=== PATIENT | female | born 1950 | race Caucasian/White ===

== ENCOUNTER 2018-06-25 22:11 | Emergency (ER) | payer MEDICARE, OTHER ==
[2018-06-25] MEDS ORDERED: Sodium Chloride 0.9% 1000 ML 1,000 ML ONE (22:38)
[2018-06-25 22:40] LABS: BASOPHIL % 0.3 % (0.0-0.4); Basophil (Absolute #) 0.03 (0-0.4); Eosinophil % 2.8 % (0.00-5.0); Eosinophil (Absolute #) 0.25 (0-0.5); Granulocyte Absolute (ANC) 5.79 (1.4-6.9); Granulocytes % 65.7 % (36.0-66.0); Hematocrit 33.2 % (35-47); Hemoglobin 10.9 gm/dl (12.0-16.0); Lymphocyte (Absolute #) 1.89 (1.0-4.6); Lymphocytes % 21.4 % (24.0-44.0); Mean Cell Volume 84.7 fl (78-100); Mean Corpuscular Hemoglobin 27.8 pg (26-32); Mean Corpuscular Hgb Concent. 32.8 g/dl (32-36); Monocyte (Absolute #) 0.86 (0.0-1.3); Monocytes % 9.8 % (0.0-12.0); Platelet Count 239 K/mm3 (150-450); Red Blood Count 3.92 M/mm3 (4.1-5.4); Red Cell Distribution Width 13.6 % (11.5-14.0); White Blood Count 8.8 K/mm3 (4.0-10.5)
[2018-06-25] MEDS ORDERED: Sodium Chloride 0.9% 1000 ML 1,000 ML IV SCH (22:45)
--- NOTE | 2018-06-25 22:46 | ERPHSYRPT ---
- History of Present Illness Time Seen by Provider: 06/25/18 22:39 Source: EMS Exam Limitations: other (patient not speaking at this time) Physician History: 68-year-old white female arrives via ambulance With complaint of the patient had decreased level of consciousness at home patient was noted to have a blood sugar of 27 at home she arrives she is unable to speak she is however able to follow instructions she will mouth words. She will move all extremities. Family states that around 9:00 patient began to stumble around and then became unresponsive o'clock he started unresponsiveness medics were called around 9:30 PM. Timing/Duration: today Severity: moderate Modifying Factors: Improves With: nothing Associated Symptoms: other (decreased level of consciousness at home, not speaking, hypoglycemic at home) Allergies/Adverse Reactions: UNOBTAINABLE Allergy (Verified 06/25/18 23:22) Home Medications: Atorvastatin Calcium 80 mg PO DAILY 06/25/18 [History] Carvedilol 12.5 mg [Coreg 12.5 mg] 12.5 mg PO BID 06/25/18 [History] Gabapentin 300 mg PO TID 06/25/18 [History] Insulin Detemir [Levemir] 45 units SQ HS 06/25/18 [History] Lisinopril 40 mg PO DAILY 06/25/18 [History] Metformin HCl 1,000 mg PO BID 06/25/18 [History] Spironolactone 25 mg PO BID 06/25/18 [History] Tizanidine HCl 8 mg PO DAILY 06/25/18 [History] glipiZIDE [Glipizide] 10 mg PO DAILY 06/25/18 [History] - Review of Systems Constitutional: No Fever, No Chills Eyes: No Symptoms Ears, Nose, & Throat: No Symptoms Respiratory: No Cough, No Dyspnea Cardiac: No Chest Pain, No Edema, No Syncope Abdominal/Gastrointestinal: No Abdominal Pain, No Nausea, No Vomiting, No Diarrhea Genitourinary Symptoms: No Symptoms Musculoskeletal: No Back Pain, No Neck Pain Skin: No Rash Neurological: Other (decreased level of consciousness at home, not speaking) Psychological: No Symptoms Endocrine: No Symptoms - Past Medical History Pertinent Past Medical History: Yes Cardiac History: Hypertension Endocrine Medical History: Diabetes Type II - Nursing Vital Signs Nursing Vital Signs: Initial Vital Signs Temperature 97.4 F 06/25/18 22:25 Pulse Rate 68 06/25/18 22:25 Respiratory Rate 14 06/25/18 22:25 Blood Pressure 111/56 06/25/18 22:25 O2 Sat by Pulse Oximetry 91 L 06/25/18 22:25 Pain Scale Pain Intensity 0 - Physical Exam General Appearance: other (well-developed well-nour alert she is holding onto bilateral bed rails, she is cooperative to examination, patient will mouth words however she will not answer verbally to questions) Eye Exam: PERRL/EOMI, eyes nml inspection Ears, Nose, Throat Exam: normal ENT inspection, TMs normal, pharynx normal, moist mucous membranes Neck Exam: normal inspection, non-tender, supple, full range of motion Respiratory Exam: normal breath sounds, lungs clear, No respiratory distress Cardiovascular Exam: regular rate/rhythm, normal heart sounds, normal peripheral pulses Gastrointestinal/Abdomen Exam: soft, normal bowel sounds, No tenderness, No mass Back Exam: normal inspection, normal range of motion, No CVA tenderness, No vertebral tenderness Extremity Exam: normal inspection, normal range of motion, pelvis stable Neurologic Exam: alert, cooperative, lime mixer II-XII nml as tested (this is or she had W), normal mood/affect, nml cerebellar function, nml station & gait, sensation nml, other (patient will mouth words when going to answer questions. However she will not speak out loud, no facial droop, cranial nerves II through XII intact, tumbler machine operator helper equal and symmetrical 5 over 5, normal finger to nose, full range of motion to all extremities. Sensation intact to all extremities. Follows commands well), No motor deficits Skin Exam: normal color, warm, dry, No rash SpO2 Interpretation: normal - Course Nursing assessment & vital signs reviewed: Yes EKG Interpreted by Me: RATE (67 bpm), Sinus Rhythm, NORMAL AXIS, Other (EKG: Sinus rhythm, 67 bpm normal axis, no acute ST or T wave changes noted.) - CT Exams Head CT Interpretation: Tele-radiologist Report (no acute findings) Ordered Tests: Active Orders 24 hr Category Date Time Status Accucheck STAT Care 06/25/18 22:32 Active Accucheck STAT Care 06/26/18 00:00 Active Accucheck STAT Care 06/26/18 01:04 Active Accucheck STAT Care 06/26/18 02:00 Active Sound Assistant STAT Care 06/25/18 22:33 Active EKG-ER Only STAT Care 06/25/18 22:32 Active IV Insertion STAT Care 06/25/18 22:32 Active HEAD WITHOUT CONTRAST [CT] Stat Exams 06/25/18 22:33 Taken CBC W DIFF Stat Lab 06/25/18 22:30 Completed CMP Stat Lab 06/25/18 22:30 Completed PROTIME WITH INR Stat Lab 06/25/18 22:40 Completed PTT Stat Lab 06/25/18 22:40 Completed TROPONIN Q3H Lab 06/25/18 22:40 Completed TROPONIN Q3H Lab 06/26/18 01:45 Ordered TROPONIN Q3H Lab 06/26/18 04:45 Ordered TROPONIN Q3H Lab 06/26/18 07:45 Ordered TROPONIN Q3H Lab 06/26/18 10:45 Ordered UA W/RFX UR CULTURE Stat Lab 06/25/18 23:38 Ordered Medication Summary Generic Name Dose Route Start Last Admin Trade Name Freq PRN Reason Stop Dose Admin Sodium Chloride 1,000 mls @ 50 mls/hr 06/25/18 22:45 06/25/18 22:39 Sodium Chloride 0.9% 1000 Ml IV 07/25/18 22:44 50 mls/hr .Q20H SRI Administration Dextrose/Sodium Chloride 1,000 mls @ 100 mls/hr 06/26/18 00:30 06/26/18 00:09 Dextrose 5%-Ns Iv Solution 1000 Ml IV 07/26/18 00:29 100 mls/hr .Q10H SRI Administration Lab/Rad Data: Laboratory Result Diagrams 06/25/18 22:30 06/25/18 22:30 Laboratory Results 06/25/18 06/25/18 06/25/18 Range/Units 22:40 22:40 22:30 WBC (4.0-10.5) K/mm3 RBC (4.1-5.4) M/mm3 Hgb (12.0-16.0) gm/dl Hct (35-47) % MCV (78-100) fl MCH (26-32) pg MCHC (32-36) g/dl RDW (11.5-14.0) % Plt Count (150-450) K/mm3 MPV (6-9.5) fl Gran % (36.0-66.0) % Eos # (Auto) (0-0.5) Absolute Lymphs (auto) (1.0-4.6) Absolute Monos (auto) (0.0-1.3) Lymphocytes % (24.0-44.0) % Monocytes % (0.0-12.0) % Eosinophils % (0.00-5.0) % Basophils % (0.0-0.4) % Absolute Granulocytes (1.4-6.9) Basophils # (0-0.4) PT 11.7 (9.95-12.35) SECONDS INR 1.01 (0.8-3.0) APTT 27.3 (25.3-37.0) SECONDS Sodium 134 L (137-145) mmol/L Potassium 4.7 (3.5-5.1) mmol/L Chloride 103 (98-107) mmol/L Carbon Dioxide 21 L (22-30) mmol/L Anion Gap 15.2 H (5-15) MEQ/L BUN 33 H (7-17) mg/dL Creatinine 1.46 H (0.52-1.04) mg/dL Estimated GFR 37.6 ML/MIN Glucose 158 H (74-106) mg/dL Calcium 9.3 (8.4-10.2) mg/dL Total Bilirubin 0.30 (0.2-1.3) mg/dL AST 19 (14-36) U/L ALT 20 (0-35) U/L Alkaline Phosphatase 76 (38-126) U/L Troponin I < 0.012 (0.000-0.034) ng/mL Serum Total Protein 6.9 (6.3-8.2) g/dL Albumin 4.3 (3.5-5.0) g/dL 06/25/18 Range/Units 22:30 WBC 8.8 (4.0-10.5) K/mm3 RBC 3.92 L (4.1-5.4) M/mm3 Hgb 10.9 L (12.0-16.0) gm/dl Hct 33.2 L (35-47) % MCV 84.7 (78-100) fl MCH 27.8 (26-32) pg MCHC 32.8 (32-36) g/dl RDW 13.6 (11.5-14.0) % Plt Count 239 (150-450) K/mm3 MPV 10.0 H (6-9.5) fl Gran % 65.7 (36.0-66.0) % Eos # (Auto) 0.25 (0-0.5) Absolute Lymphs (auto) 1.89 (1.0-4.6) Absolute Monos (auto) 0.86 (0.0-1.3) Lymphocytes % 21.4 L (24.0-44.0) % Monocytes % 9.8 (0.0-12.0) % Eosinophils % 2.8 (0.00-5.0) % Basophils % 0.3 (0.0-0.4) % Absolute Granulocytes 5.79 (1.4-6.9) Basophils # 0.03 (0-0.4) PT (9.95-12.35) SECONDS INR (0.8-3.0) APTT (25.3-37.0) SECONDS Sodium (137-145) mmol/L Potassium (3.5-5.1) mmol/L Chloride (98-107) mmol/L Carbon Dioxide (22-30) mmol/L Anion Gap (5-15) MEQ/L BUN (7-17) mg/dL Creatinine (0.52-1.04) mg/dL Estimated GFR ML/MIN Glucose (74-106) mg/dL Calcium (8.4-10.2) mg/dL Total Bilirubin (0.2-1.3) mg/dL AST (14-36) U/L ALT (0-35) U/L Alkaline Phosphatase (38-126) U/L Troponin I (0.000-0.034) ng/mL Serum Total Protein (6.3-8.2) g/dL Albumin (3.5-5.0) g/dL - Progress Progress: improved Progress Note: 06/25/18 23:31 68-year-old white female who was noted to become unresponsive at home. Patient apparently was with family getting ready for bed when she had decreased level of consciousness. Medics were summoned they noticed blood sugar to be 28 The patient was apparently given one milligram of glucagon and 1 amp of D50. On arrival patient was alert however she was speaking with mouthing words and slow to speak. She had full range of motion to all extremities there was no facial droop there was no pronator drift tumbler machine operator helper were equal and symmetrical 5 over 5. Patient is sent to the CT. Patient has a now alert oriented speaking. Awaiting head CT results. CBC CMP EKG troponin are all essentially normal. Will obtain urinalysis. 06/26/18 01:40 Patient feeling markedly better Patient with normal neurologic exam Patient's sugars had gone from around 140 to 86. She was given food and placed on D5 normal saline 100 mL per hour. Blood sugars appear to be improving she has been turned down to 50 mL per hour of D5 normal saline. She is asking to go home Will recheck blood sugars and if remains stable will discharge patient home. 06/26/18 02:04 The patient's accucheck is now 176, she is feeling well she has a normal neuroligic examination will release patient. - Departure Time of Disposition: 02:05 Departure Disposition: Home Clinical Impression: Hypoglycemia, Mental status change resolved Condition: Fair Critical Care Time: No Referrals: EULA MCFARLAND MD [Primary Care Provider] - Additional Instructions: Return home. Monitor your blood sugars carefully be sure to check your blood sugar before you go to bed. Follow-up with your family doctor. Return for acute distress or for severe symptoms.
[2018-06-25 22:51] LABS: INR 1.01 (0.8-3.0)
[2018-06-25 22:54] LABS: PTT 27.3 SECONDS (25.3-37.0)
[2018-06-25 22:56] LABS: ALBUMIN 4.3 g/dL (3.5-5.0); ANION GAP 15.2 MEQ/L (5-15); BILIRUBIN,TOTAL 0.3 mg/dL (0.2-1.3); Calcium 9.3 mg/dL (8.4-10.2); Creatinine 1 1.46 mg/dL (0.52-1.04); Potassium 4.7 mmol/L (3.5-5.1); Total Protein 6.9 g/dL (6.3-8.2)
[2018-06-26] MEDS ORDERED: Dextrose 5%-NS IV Solution 1000 ML 1,000 ML IV ONE (00:08)
[2018-06-26] MEDS ORDERED: Dextrose 5%-NS IV Solution 1000 ML 1,000 ML IV SCH (00:30)
[2018-06-26 02:11] VITALS: BP 116/78; PULSE 78; O2SAT 94
--- NOTE | 2018-06-26 08:50 | XRAY ---
Indication: Change in mental status. Hyperglycemia. Multiple contiguous axial images obtained through the head without contrast. Comparison: None Normal appearing brain parenchyma, ventricles, and bony calvarium. Visualized paranasal sinuses and mastoid air cells are clear. Impression: Normal CT head without contrast exam. Comment: Preliminary interpretation was made by [facility]. No discrepancy. CT DI 65.42
== END 2018-06-26 02:28 | disposition home or self-care (01) ==
LOC: ED 22:11
DX: E11.649 Type 2 diabetes mellitus with hypoglycemia without coma (principal); R41.82 Altered mental status, unspecified; I10 Essential (primary) hypertension; Z79.4 Long term (current) use of insulin; Z79.899 Other long term (current) drug therapy
CPT/HCPCS: 36000; 36415; 70450; 80053; 82962; 84484; 85025; 85610; 85730; 93005; 93041; 96360; 96361; 99284

== ENCOUNTER 2021-12-14 14:29 | Inpatient (IN) | payer MEDICARE, OTHER ==
[2021-12-14 15:10] LABS: Absolute Neutrophil Ct (ANC) 11.48 (1.4-6.9); Basophil (Absolute #) 0.01 (0-0.4); Eosinophil % 0.2 % (0.00-5.0); Eosinophil (Absolute #) 0.02 (0-0.5); Hematocrit 31.6 % (35-47); Hemoglobin 10.1 gm/dl (12.0-16.0); Lymphocyte (Absolute #) 0.63 (1.0-4.6); Lymphocytes % 4.9 % (24.0-44.0); Mean Cell Volume 85.6 fl (78-100); Mean Corpuscular Hemoglobin 27.4 pg (26-32); Mean Platelet Volume 10.6 fl (7.5-11.0); Monocyte (Absolute #) 0.63 (0.0-1.3); Monocytes % 4.9 % (0.0-12.0); Neutrophil % 89.9 % (36.0-66.0); Platelet Count 146 K/mm3 (150-450); Red Blood Count 3.69 M/mm3 (4.1-5.4); Red Cell Distribution Width 13.5 % (11.5-14.0); White Blood Count 12.8 K/mm3 (4.0-10.5)
[2021-12-14 15:24] LABS: ALBUMIN 3.6 g/dL (3.5-5.0); ANION GAP 17.6 MEQ/L (5-15); BILIRUBIN,TOTAL 0.7 mg/dL (0.2-1.3); Calcium 8.3 mg/dL (8.4-10.2); Creatinine 1 3.6 mg/dL (0.52-1.04); EST GLOMERULAR FILTRATION RATE 13.2 ML/MIN; Potassium 5.5 mmol/L (3.5-5.1); Total Protein 6.5 g/dL (6.3-8.2)
--- NOTE | 2021-12-14 16:20 | ERPHSYRPT ---
- History of Present Illness Time Seen by Provider: 12/14/21 14:44 Source: patient Exam Limitations: no limitations, physical impairment Patient Subjective Stated Complaint: "Dr Mcfarland told me I had low blood pressure and I was anemic." Triage Nursing Assessment: pt to ED c/o hypotension and anemia. pt states she was sent to this ED from Dr Bryant office for further eval of her hypotension and anemia. pt has hx HTN and takes medication for that but was told in the office today to hold HTN meds. on arrival to ED pt in wheel chair and was to bed with stand by assist. denies dizziness or pain now. on arrival pt is Hypertensive at 178/62. Physician History: Patient is a 71-year-old female presents to our ED as referral from her primary care physician Dr. Mcfarland for evaluation and treatment of hypotension and an emia. Upon arrival to our ED patient was not hypotensive. Patient has a history of hypertension. Patient asymptomatic. No chest pain no shortness of breath. No nausea vomiting or diaphoresis. No fever. Patient states she feels well. Timing/Duration: today Modifying Factors: Improves With: nothing Associated Symptoms: denies symptoms Allergies/Adverse Reactions: piroxicam [From Feldene] Allergy (Verified 12/14/21 14:35) Home Medications: Atorvastatin Calcium 80 mg PO DAILY 06/25/18 [History] Carvedilol 12.5 mg [Coreg 12.5 mg] 12.5 mg PO BID 06/25/18 [History] Gabapentin 300 mg PO BID 06/25/18 [History] Insulin Detemir [Levemir] 45 units SQ HS 06/25/18 [History] Spironolactone 25 mg PO BID 06/25/18 [History] Tizanidine HCl 8 mg PO DAILY 06/25/18 [History] Aspirin 81 gm Chew [Baby Aspirin 81 mg Chew] 81 mg PO DAILY 12/14/21 [History] Ibuprofen 200 mg [Motrin 200 mg] 600 mg PO DAILY PRN PRN 12/14/21 [History] Losartan Potassium 50 mg [Cozaar 50 MG] 100 mg PO DAILY 12/14/21 [History] Nitroglycerin 0.4 mg Tablet [Nitrostat 0.4 MG Tablet] 0.4 mg PO DAILY PRN PRN 12/14/21 [History] Omeprazole 40 mg PO DAILY 12/14/21 [History] Hx Tetanus, Diphtheria Vaccination/Date Given: Yes Hx Influenza Vaccination/Date Given: Yes Hx Pneumococcal Vaccination/Date Given: Yes Immunizations Up to Date: Yes Travel Risk - International Travel Have you traveled outside of the country in past 3 weeks: No - Coronavirus Screening Are you exhibiting any of the following symptoms?: No Close contact with a COVID-19 positive Pt in past 14-21 Days: No - Vaccine Status Have you recieved a Covid-19 vaccination: Yes Instruction Librarian: Moderna - Vaccination Dates Date of 2cond Vaccination (if applicable): january 01 - Review of Systems Constitutional: No Symptoms, No Fever, No Chills Eyes: No Symptoms Ears, Nose, & Throat: No Symptoms Respiratory: No Symptoms, No Cough, No Dyspnea Cardiac: No Symptoms, No Chest Pain, No Edema, No Syncope Abdominal/Gastrointestinal: No Symptoms, No Abdominal Pain, No Nausea, No Vomiting, No Diarrhea Genitourinary Symptoms: No Symptoms, No Dysuria Musculoskeletal: No Symptoms, No Back Pain, No Neck Pain Skin: No Symptoms, No Rash Neurological: No Symptoms, No Dizziness, No Focal Weakness, No Sensory Changes Psychological: No Symptoms Endocrine: No Symptoms Hematologic/Lymphatic: No Symptoms Immunological/Allergic: No Symptoms All Other Systems: Reviewed and Negative - Past Medical History Pertinent Past Medical History: Yes Cardiac History: High Cholesterol, Hypertension Respiratory History: Emphysema Endocrine Medical History: Diabetes Type II GI Medical History: GERD - Past Surgical History Past Surgical History: Yes Gastrointestinal: Cholecystectomy Genitourinary: Other Other Surgical History: bladder lift - Social History Smoking Status: Never smoker Exposure to second hand smoke: No Drug Use: none Patient Lives Alone: No () - Nursing Vital Signs Nursing Vital Signs: Initial Vital Signs Temperature 98.2 F 12/14/21 14:36 Pulse Rate 103 H 12/14/21 14:36 Respiratory Rate 18 12/14/21 14:36 Blood Pressure 178/62 12/14/21 14:36 O2 Sat by Pulse Oximetry 95 12/14/21 14:36 Pain Scale Pain Intensity 0 - Physical Exam General Appearance: no apparent distress, alert Eye Exam: PERRL/EOMI, eyes nml inspection Ears, Nose, Throat Exam: normal ENT inspection, TMs normal, pharynx normal, moist mucous membranes Neck Exam: normal inspection, non-tender, supple, full range of motion Respiratory Exam: normal breath sounds, lungs clear, airway intact, No respiratory distress Cardiovascular Exam: regular rate/rhythm, normal heart sounds, normal peripheral pulses Gastrointestinal/Abdomen Exam: soft, normal bowel sounds, No tenderness, No mass Back Exam: normal inspection, normal range of motion, No CVA tenderness, No vertebral tenderness Extremity Exam: normal inspection, normal range of motion, pelvis stable Neurologic Exam: alert, oriented x 3, cooperative, normal mood/affect, nml cerebellar function, nml station & gait, sensation nml, No motor deficits Skin Exam: normal color, warm, dry, No rash Lymphatic Exam: No adenopathy SpO2 Interpretation: normal SpO2: 92 O2 Delivery: Room Air - Course Nursing assessment & vital signs reviewed: Yes Ordered Tests: Active Orders 24 hr Category Date Time Status Associate Engineer STAT Care 12/14/21 14:51 Active EKG-ER Only STAT Care 12/14/21 14:50 Active IV Insertion STAT Care 12/14/21 14:50 Active Pulse Oximetry (ED) STAT Care 12/14/21 14:50 Active CBC W DIFF Stat Lab 12/14/21 14:45 Completed CMP Stat Lab 12/14/21 14:45 Completed CULTURE,URINE Stat Lab 12/14/21 16:17 Received NT PRO BNP Stat Lab 12/14/21 14:45 Completed TROPONIN Q3H Lab 12/14/21 14:45 Completed TROPONIN Q3H Lab 12/14/21 16:34 Completed TROPONIN Q3H Lab 12/14/21 21:00 Ordered TROPONIN Q3H Lab 12/15/21 00:00 Ordered TROPONIN Q3H Lab 12/15/21 03:00 Ordered UA W/RFX UR CULTURE Stat Lab 12/14/21 16:17 Completed Medication Summary Generic Name Dose Route Start Last Admin Trade Name Freq PRN Reason Stop Dose Admin Sodium Chloride 1,000 mls @ 100 mls/hr 12/14/21 16:45 12/14/21 16:35 Sodium Chloride 0.9% 1000 Ml IV 01/13/22 16:44 100 mls/hr .Q10H SRI Administration Discontinued Medications Generic Name Dose Route Start Last Admin Trade Name Freq PRN Reason Stop Dose Admin Ceftriaxone Sodium/Dextrose 1 g in 50 mls @ 100 mls/hr 12/14/21 17:03 12/14/21 17:38 Rocephin 1 Gm-D5w 50 Ml Bag IV 12/14/21 17:32 Infused STAT STA Infusion Ceftriaxone Sodium/Dextrose Confirm 12/14/21 17:03 Rocephin 1 Gm-D5w 50 Ml Bag Administered 12/14/21 17:04 Dose 1 g in 50 mls @ ud IV .STK-MED ONE Lab/Rad Data: Laboratory Result Diagrams 12/14/21 14:45 12/14/21 14:45 Laboratory Results 12/14/21 12/14/21 12/14/21 Range/Units 16:51 16:34 16:17 WBC (4.0-10.5) K/mm3 RBC (4.1-5.4) M/mm3 Hgb (12.0-16.0) gm/dl Hct (35-47) % MCV (78-100) fl MCH (26-32) pg MCHC (32-36) g/dl RDW (11.5-14.0) % Plt Count (150-450) K/mm3 MPV (7.5-11.0) fl Gran % (36.0-66.0) % Eos # (Auto) (0-0.5) Absolute Lymphs (auto) (1.0-4.6) Absolute Monos (auto) (0.0-1.3) Lymphocytes % (24.0-44.0) % Monocytes % (0.0-12.0) % Eosinophils % (0.00-5.0) % Basophils % (0.0-0.4) % Absolute Granulocytes (1.4-6.9) Basophils # (0-0.4) Sodium (137-145) mmol/L Potassium (3.5-5.1) mmol/L Chloride (98-107) mmol/L Carbon Dioxide (22-30) mmol/L Anion Gap (5-15) MEQ/L BUN (7-17) mg/dL Creatinine (0.52-1.04) mg/dL Estimated GFR ML/MIN Glucose (74-106) mg/dL Calcium (8.4-10.2) mg/dL Total Bilirubin (0.2-1.3) mg/dL AST (14-36) U/L ALT (0-35) U/L Alkaline Phosphatase (38-126) U/L Troponin I < 0.012 (0.000-0.034) ng/mL NT-Pro-B Natriuret Pep (0-900) pg/mL Serum Total Protein (6.3-8.2) g/dL Albumin (3.5-5.0) g/dL Urine Color AMOR (YELLOW) Urine Appearance TURBID (CLEAR) Urine pH 6.0 (5-6) Ur Specific [place] 1.008 (1.005-1.025) Urine Protein >=500 (Negative) Urine Ketones NEGATIVE (NEGATIVE) Urine Blood MODERATE (0-5) Vincent/ul Urine Nitrite NEGATIVE (NEGATIVE) Urine Bilirubin NEGATIVE (NEGATIVE) Urine Urobilinogen NEGATIVE (0-1) mg/dL Ur Leukocyte Esterase LARGE (NEGATIVE) Urine WBC (Auto) >100 (0-5) /HPF Urine RBC (Auto) 16-25 (0-2) /HPF Urine Bacteria (Auto) MANY (NEGATIVE) /HPF Urine Mucus (Auto) SLIGHT (NEGATIVE) /HPF Urine Culture Reflexed YES (NO) Urine Glucose 150 (NEGATIVE) mg/dL Influenza Type A Ag NEGATIVE (NEGATIVE) Influenza Type B Ag NEGATIVE (NEGATIVE) RSV (PCR) NEGATIVE (Negative) SARS-CoV-2 (PCR) NEGATIVE (NEGATIVE) 12/14/21 12/14/21 12/14/21 Range/Units 14:45 14:45 14:45 WBC 12.8 H (4.0-10.5) K/mm3 RBC 3.69 L (4.1-5.4) M/mm3 Hgb 10.1 L (12.0-16.0) gm/dl Hct 31.6 L (35-47) % MCV 85.6 (78-100) fl MCH 27.4 (26-32) pg MCHC 32.0 (32-36) g/dl RDW 13.5 (11.5-14.0) % Plt Count 146 L (150-450) K/mm3 MPV 10.6 (7.5-11.0) fl Gran % 89.9 H (36.0-66.0) % Eos # (Auto) 0.02 (0-0.5) Absolute Lymphs (auto) 0.63 L (1.0-4.6) Absolute Monos (auto) 0.63 (0.0-1.3) Lymphocytes % 4.9 L (24.0-44.0) % Monocytes % 4.9 (0.0-12.0) % Eosinophils % 0.2 (0.00-5.0) % Basophils % 0.1 (0.0-0.4) % Absolute Granulocytes 11.48 H (1.4-6.9) Basophils # 0.01 (0-0.4) Sodium 128 L (137-145) mmol/L Potassium 5.5 H (3.5-5.1) mmol/L Chloride 100 (98-107) mmol/L Carbon Dioxide 16 L* (22-30) mmol/L Anion Gap 17.6 H (5-15) MEQ/L BUN 52 H (7-17) mg/dL Creatinine 3.60 H (0.52-1.04) mg/dL Estimated GFR 13.2 ML/MIN Glucose 179 H (74-106) mg/dL Calcium 8.3 L (8.4-10.2) mg/dL Total Bilirubin 0.70 (0.2-1.3) mg/dL AST 23 (14-36) U/L ALT 24 (0-35) U/L Alkaline Phosphatase 124 (38-126) U/L Troponin I < 0.012 (0.000-0.034) ng/mL NT-Pro-B Natriuret Pep 1100 H (0-900) pg/mL Serum Total Protein 6.5 (6.3-8.2) g/dL Albumin 3.6 (3.5-5.0) g/dL Urine Color (YELLOW) Urine Appearance (CLEAR) Urine pH (5-6) Ur Specific [place] (1.005-1.025) Urine Protein (Negative) Urine Ketones (NEGATIVE) Urine Blood (0-5) Vincent/ul Urine Nitrite (NEGATIVE) Urine Bilirubin (NEGATIVE) Urine Urobilinogen (0-1) mg/dL Ur Leukocyte Esterase (NEGATIVE) Urine WBC (Auto) (0-5) /HPF Urine RBC (Auto) (0-2) /HPF Urine Bacteria (Auto) (NEGATIVE) /HPF Urine Mucus (Auto) (NEGATIVE) /HPF Urine Culture Reflexed (NO) Urine Glucose (NEGATIVE) mg/dL Influenza Type A Ag (NEGATIVE) Influenza Type B Ag (NEGATIVE) RSV (PCR) (Negative) SARS-CoV-2 (PCR) (NEGATIVE) - Progress Progress: improved Progress Note: Work-up reveals a leukocytosis thrombocytopenia hyponatremia hyperkalemia met abolic acidosis with acute renal injury. Case discussed with Dr. Mcfarland who accepts admission to observation. Dr. Mcfarland is requesting Dr. Esparza/Booker for renal consult. Plan of care discussed with patient. She agrees to admission [facility]. Covid test pending. IV fluid infusion initiated at a rate of 100 cc/h. 12/14/21 16:[address] Kari Will see patient in: hospital (observation) Counseled pt/family regarding: lab results, diagnosis, rad results - Departure Departure Disposition: Observation Clinical Impression: Leukocytosis, Thrombocytopenia, Hyponatremia, Hyperkalemia, Metabolic acidosis, Acute renal injury, Elevated brain natriuretic peptide (BNP) level, Urinary tract infection Condition: Stable Critical Care Time: No Referrals: EULA MCFARLAND MD [Primary Care Provider] - Follow up/PCP as directed
[2021-12-14] MEDS ORDERED: Sodium Chloride 0.9% 1000 ML 1,000 ML ONE (16:34)
[2021-12-14] MEDS ORDERED: Sodium Chloride 0.9% 1000 ML 1,000 ML IV SCH (16:45)
[2021-12-14 16:55] LABS: Appearance TURBID (CLEAR); Bacteria MANY /HPF (NEGATIVE); Bilirubin NEGATIVE (NEGATIVE); Blood MODERATE Ery/ul (0-5); Glucose 150 mg/dL (NEGATIVE); Ketones NEGATIVE (NEGATIVE); Leukocyte Esterase LARGE (NEGATIVE); Mucus SLIGHT /HPF (NEGATIVE); Nitrite NEGATIVE (NEGATIVE); Protein,Urine Dip >=500 (Negative); Specific Gravity 1.008 (1.005-1.025); Urobilinogen NEGATIVE mg/dL (0-1); WBC >100 /HPF (0-5)
[2021-12-14] MEDS ORDERED: ROCEPHIN 1 Gm-D5w 50 ml Bag** 1 G/50 ML IVPB IV ONE (17:03)
[2021-12-14] MEDS ORDERED: ROCEPHIN 1 Gm-D5w 50 ml Bag** 1 G/50 ML IVPB IV STA (17:03)
[2021-12-14 17:37] LABS: INFLUENZA A NEGATIVE (NEGATIVE); INFLUENZA B NEGATIVE (NEGATIVE); RESPIRATORY SYNCTIAL VIRUS NEGATIVE (Negative); SARS-CoV-2 Xpert Express NEGATIVE (NEGATIVE)
[2021-12-14] MEDS ORDERED: MORPHINE SULFATE 2 MG INJ IV PRN (18:19)
[2021-12-14] MEDS ORDERED: TYLENOL 325 MG PO PRN (18:19)
[2021-12-14] MEDS ORDERED: Zofran 4 MG/2 ML VIAL IV PRN (18:19)
[2021-12-14] MEDS ORDERED: MOTRIN 600 MG PO PRN (19:38)
[2021-12-14] MEDS ORDERED: Nitrostat 0.4 MG Tablet SL PRN (19:40)
[2021-12-14] MEDS: COREG 12.5 MG PO SCH (21:00)
[2021-12-14] MEDS: NEURONTIN 300 MG PO SCH (21:01)
[2021-12-14] MEDS: Lantus Insulin SQ SCH (21:02)
[2021-12-14] MEDS ORDERED: Aldactone 25 MG PO SCH (22:00)
[2021-12-15] MEDS: Sodium Chloride 0.9% 1000 ML 1,000 ML IV SCH ×3 (02:44→20:03)
[2021-12-15 03:22] LABS: Absolute Neutrophil Ct (ANC) 9.26 (1.4-6.9); Basophil (Absolute #) 0.02 (0-0.4); Eosinophil % 0.1 % (0.00-5.0); Eosinophil (Absolute #) 0.01 (0-0.5); Hematocrit 26.4 % (35-47); Hemoglobin 8.6 gm/dl (12.0-16.0); Lymphocyte (Absolute #) 0.72 (1.0-4.6); Lymphocytes % 6.6 % (24.0-44.0); Mean Cell Volume 84.9 fl (78-100); Mean Corpuscular Hemoglobin 27.7 pg (26-32); Mean Corpuscular Hgb Concent. 32.6 g/dl (32-36); Mean Platelet Volume 9.7 fl (7.5-11.0); Monocyte (Absolute #) 0.95 (0.0-1.3); Monocytes % 8.7 % (0.0-12.0); Neutrophil % 84.4 % (36.0-66.0); Platelet Count 129 K/mm3 (150-450); Red Blood Count 3.11 M/mm3 (4.1-5.4); Red Cell Distribution Width 13.5 % (11.5-14.0)
[2021-12-15 03:46] LABS: ALBUMIN 3.1 g/dL (3.5-5.0); ANION GAP 11.2 MEQ/L (5-15); BILIRUBIN,TOTAL 0.4 mg/dL (0.2-1.3); Calcium 7.8 mg/dL (8.4-10.2); Creatinine 1 3.58 mg/dL (0.52-1.04); EST GLOMERULAR FILTRATION RATE 13.3 ML/MIN
[2021-12-15] MEDS ORDERED: MEDICATION INTERVENTION MC SCH (08:00)
[2021-12-15] MEDS: ZOCOR 20MG PO SCH (09:52)
[2021-12-15] MEDS: Aldactone 25 MG PO SCH ×2 (09:52→18:31)
[2021-12-15] MEDS: ECOTRIN 81 MG PO SCH (09:52)
[2021-12-15] MEDS: COREG 12.5 MG PO SCH ×2 (09:54→22:37)
[2021-12-15] MEDS: Lantus Insulin SQ SCH ×2 (09:54→22:40)
[2021-12-15] MEDS: Protonix 40MG Tablet PO SCH (09:54)
[2021-12-15] MEDS: ROCEPHIN 1 Gm-D5w 50 ml Bag** 1 G/50 ML IVPB IV SCH (09:55)
[2021-12-15] MEDS: NEURONTIN 300 MG PO SCH ×2 (09:55→22:37)
[2021-12-15] MEDS ORDERED: Cozaar 50 MG PO SCH (10:00)
[2021-12-15] MEDS ORDERED: NON-FORMULARY ITEM (Atorvastatin Calcium [Atorvastatin Calcium] 80 MG Tablet) PO SCH (10:00)
[2021-12-15] MEDS ORDERED: NON-FORMULARY ITEM (Omeprazole [Omeprazole] 40 MG Capsule.Dr) PO SCH (10:00)
[2021-12-15] MEDS ORDERED: NON-FORMULARY ITEM (Budesonide/Glycopyr/Formoterol [Breztri Aerosphere Inhaler] 10.7 GM Hf IH SCH (10:00)
[2021-12-15] MEDS ORDERED: Zanaflex 4 MG PO SCH (10:00)
[2021-12-15] MEDS: PATIENT OWN MEDICATION IH SCH ×2 (11:02→22:05)
--- NOTE | 2021-12-15 12:06 | PCM.HP ---
History of Present Illness - Chief Complaint Chief Complaint: hypotensive at home History of Present Illness: is a 71 year old female.presents to our ED as referral from her primary care physician Dr. Villanueva for evaluation and treatment of hypotension and anemia. Upon arrival to our ED patient was not hypotensive. Patient has a history of hypertension. Patient asymptomatic. No chest pain no shortness of breath. No nausea vomiting or diaphoresis. No fever. Patient states she feels well. Timing/Duration: today Modifying Factors: Improves With: nothing Associated Symptoms: denies symptoms - Review of Systems Constitutional: Fatigue, No Fever, No Chills Eyes: No Symptoms Ears, Nose, & Throat: No Symptoms Respiratory: No Cough, No Short Of Breath Cardiac: No Chest Pain, No Edema, No Syncope Abdominal/Gastrointestinal: No Abdominal Pain, No Nausea, No Vomiting, No Diarrhea Genitourinary Symptoms: No Dysuria Musculoskeletal: No Back Pain, No Neck Pain Skin: No Rash Neurological: No Dizziness, No Focal Weakness, No Sensory Changes Psychological: No Symptoms Endocrine: No Symptoms Hematologic/Lymphatic: No Symptoms Immunological/Allergic: No Symptoms Medications & Allergies Home Medications: Home Medication List Atorvastatin Calcium 80 mg PO DAILY 06/25/18 [History Confirmed 12/14/21] Carvedilol 12.5 mg [Coreg 12.5 mg] 12.5 mg PO BID 06/25/18 [History Confirmed 12/14/21] Gabapentin 300 mg PO BID 06/25/18 [History Confirmed 12/14/21] Insulin Detemir [Levemir] 30 units SQ BID 06/25/18 [History Confirmed 12/14/21] Spironolactone 25 mg PO BID 06/25/18 [History Confirmed 12/14/21] Tizanidine HCl 8 mg PO DAILY 06/25/18 [History Confirmed 12/14/21] Aspirin 81 gm Chew [Baby Aspirin 81 mg Chew] 81 mg PO DAILY 12/14/21 [History Confirmed 12/14/21] Budesonide/Glycopyr/Formoterol [Breztri Aerosphere Inhaler] 2 puffs IH BID 12/14/21 [History Confirmed 12/14/21] Ibuprofen 200 mg [Motrin 200 mg] 600 mg PO Q8H PRN 12/14/21 [History Confirmed 12/14/21] Losartan Potassium 50 mg [Cozaar 50 MG] 100 mg PO DAILY 12/14/21 [History Confirmed 12/14/21] Nitroglycerin 0.4 mg Tablet [Nitrostat 0.4 MG Tablet] 0.4 mg PO Q5MIN PRN MR X 3 PRN 12/14/21 [History Confirmed 12/14/21] Omeprazole 40 mg PO DAILY 12/14/21 [History Confirmed 12/14/21] Allergies/Adverse Reactions: Allergies Allergy/AdvReac Type Severity Reaction Status Date / Time piroxicam [From Feldene] Allergy Rash Verified 12/14/21 18:23 - Past Medical History Past Medical History: Yes Neurological History: No Pertinent History ENT History: No Pertinent History Cardiac History: No Pertinent History Respiratory History: COPD Endocrine Medical History: Diabetes Type II Musculoskelatal History: No Pertinent History GI Medical History: No Pertinent History History: No Pertinent History Pyscho-Social History: No Pertinent History Reproductive Disorders: No Pertinent History - Female History Are you now?: No - Past Surgical History Past Surgical History: Yes Neuro Surgical History: No Pertinent History Cardiac History: No Pertinent History Respiratory Surgery: No Pertinent History GI Surgical History: No Pertinent History Genitourinary Surgical Hx: No Pertinent History Musculskeletal Surgical Hx: No Pertinent History Female Surgical History: Hysterectomy Other Surgical History: bladder lift - Social History Smoking Status: Never smoker Exposure to second hand smoke: Yes Alcohol: None Drug Use: none - Physical Exam Vital Signs: Vital Signs - 24 hr Temp Pulse Resp BP Pulse Ox 12/15/21 11:04 82 18 92 L 12/15/21 09:46 91 L 12/15/21 08:00 97.0 F 83 15 140/64 96 12/15/21 06:56 93 L 12/15/21 03:20 97.3 F 91 H 22 127/58 93 L 12/15/21 00:00 97.5 F 95 H 18 154/67 94 L 12/14/21 20:00 97.8 F 108 H 24 150/65 93 L 12/14/21 19:23 92 L 12/14/21 18:19 97 12/14/21 18:16 98.2 F 100 H 18 165/67 93 L 03/03/22 17:56 92 L 12/14/21 17:28 96 H 18 157/57 93 L 12/14/21 16:30 104 H 18 115/91 96 12/14/21 15:35 105 H 18 172/67 92 L 12/14/21 14:58 92 L 12/14/21 14:36 98.2 F 103 H 18 178/62 95 General Appearance: no apparent distress, alert Neurologic Exam: alert, oriented x 3, cooperative, normal mood/affect, nml cerebellar function, nml station & gait, sensation nml, No motor deficits Eye Exam: PERRL/EOMI, eyes nml inspection Ears, Nose, Throat Exam: normal ENT inspection, TMs normal, pharynx normal, moist mucous membranes Neck Exam: normal inspection, non-tender, supple, full range of motion Respiratory Exam: normal breath sounds, lungs clear, No respiratory distress Cardiovascular Exam: regular rate/rhythm, normal heart sounds, normal peripheral pulses Gastrointestinal/Abdomen Exam: soft, normal bowel sounds, No tenderness, No mass Back Exam: normal inspection, normal range of motion, No CVA tenderness, No vertebral tenderness Extremity Exam: normal inspection, normal range of motion, pelvis stable Skin Exam: normal color, warm, dry, No rash Lymphatic Exam: No adenopathy Results - Labs Lab/Micro Results: Lab Results-Last 24 Hours 12/14/21 12/14/21 12/14/21 Range/Units 14:45 14:45 14:45 WBC 12.8 H (4.0-10.5) K/mm3 RBC 3.69 L (4.1-5.4) M/mm3 Hgb 10.1 L (12.0-16.0) gm/dl Hct 31.6 L (35-47) % MCV 85.6 (78-100) fl MCH 27.4 (26-32) pg MCHC 32.0 (32-36) g/dl RDW 13.5 (11.5-14.0) % Plt Count 146 L (150-450) K/mm3 MPV 10.6 (7.5-11.0) fl Gran % 89.9 H (36.0-66.0) % Eos # (Auto) 0.02 (0-0.5) Absolute Lymphs (auto) 0.63 L (1.0-4.6) Absolute Monos (auto) 0.63 (0.0-1.3) Lymphocytes % 4.9 L (24.0-44.0) % Monocytes % 4.9 (0.0-12.0) % Eosinophils % 0.2 (0.00-5.0) % Basophils % 0.1 (0.0-0.4) % Absolute Granulocytes 11.48 H (1.4-6.9) Basophils # 0.01 (0-0.4) Sodium 128 L (137-145) mmol/L Potassium 5.5 H (3.5-5.1) mmol/L Chloride 100 (98-107) mmol/L Carbon Dioxide 16 L* (22-30) mmol/L Anion Gap 17.6 H (5-15) MEQ/L BUN 52 H (7-17) mg/dL Creatinine 3.60 H (0.52-1.04) mg/dL Estimated GFR 13.2 ML/MIN Glucose 179 H (74-106) mg/dL POC Glucometer (74 to 106) mg/dL Calcium 8.3 L (8.4-10.2) mg/dL Total Bilirubin 0.70 (0.2-1.3) mg/dL AST 23 (14-36) U/L ALT 24 (0-35) U/L Alkaline Phosphatase 124 (38-126) U/L Troponin I < 0.012 (0.000-0.034) ng/mL NT-Pro-B Natriuret Pep 1100 H (0-900) pg/mL Serum Total Protein 6.5 (6.3-8.2) g/dL Albumin 3.6 (3.5-5.0) g/dL Urine Color (YELLOW) Urine Appearance (CLEAR) Urine pH (5-6) Ur Specific [place] (1.005-1.025) Urine Protein (Negative) Urine Ketones (NEGATIVE) Urine Blood (0-5) Vincent/ul Urine Nitrite (NEGATIVE) Urine Bilirubin (NEGATIVE) Urine Urobilinogen (0-1) mg/dL Ur Leukocyte Esterase (NEGATIVE) Urine WBC (Auto) (0-5) /HPF Urine RBC (Auto) (0-2) /HPF Urine Bacteria (Auto) (NEGATIVE) /HPF Urine Mucus (Auto) (NEGATIVE) /HPF Urine Culture Reflexed (NO) Urine Glucose (NEGATIVE) mg/dL Influenza Type A Ag (NEGATIVE) Influenza Type B Ag (NEGATIVE) RSV (PCR) (Negative) SARS-CoV-2 (PCR) (NEGATIVE) 12/14/21 12/14/21 12/14/21 Range/Units 16:17 16:34 16:51 WBC (4.0-10.5) K/mm3 RBC (4.1-5.4) M/mm3 Hgb (12.0-16.0) gm/dl Hct (35-47) % MCV (78-100) fl MCH (26-32) pg MCHC (32-36) g/dl RDW (11.5-14.0) % Plt Count (150-450) K/mm3 MPV (7.5-11.0) fl Gran % (36.0-66.0) % Eos # (Auto) (0-0.5) Absolute Lymphs (auto) (1.0-4.6) Absolute Monos (auto) (0.0-1.3) Lymphocytes % (24.0-44.0) % Monocytes % (0.0-12.0) % Eosinophils % (0.00-5.0) % Basophils % (0.0-0.4) % Absolute Granulocytes (1.4-6.9) Basophils # (0-0.4) Sodium (137-145) mmol/L Potassium (3.5-5.1) mmol/L Chloride (98-107) mmol/L Carbon Dioxide (22-30) mmol/L Anion Gap (5-15) MEQ/L BUN (7-17) mg/dL Creatinine (0.52-1.04) mg/dL Estimated GFR ML/MIN Glucose (74-106) mg/dL POC Glucometer (74 to 106) mg/dL Calcium (8.4-10.2) mg/dL Total Bilirubin (0.2-1.3) mg/dL AST (14-36) U/L ALT (0-35) U/L Alkaline Phosphatase (38-126) U/L Troponin I < 0.012 (0.000-0.034) ng/mL NT-Pro-B Natriuret Pep (0-900) pg/mL Serum Total Protein (6.3-8.2) g/dL Albumin (3.5-5.0) g/dL Urine Color AMOR (YELLOW) Urine Appearance TURBID (CLEAR) Urine pH 6.0 (5-6) Ur Specific [place] 1.008 (1.005-1.025) Urine Protein >=500 (Negative) Urine Ketones NEGATIVE (NEGATIVE) Urine Blood MODERATE (0-5) Vincent/ul Urine Nitrite NEGATIVE (NEGATIVE) Urine Bilirubin NEGATIVE (NEGATIVE) Urine Urobilinogen NEGATIVE (0-1) mg/dL Ur Leukocyte Esterase LARGE (NEGATIVE) Urine WBC (Auto) >100 (0-5) /HPF Urine RBC (Auto) 16-25 (0-2) /HPF Urine Bacteria (Auto) MANY (NEGATIVE) /HPF Urine Mucus (Auto) SLIGHT (NEGATIVE) /HPF Urine Culture Reflexed YES (NO) Urine Glucose 150 (NEGATIVE) mg/dL Influenza Type A Ag NEGATIVE (NEGATIVE) Influenza Type B Ag NEGATIVE (NEGATIVE) RSV (PCR) NEGATIVE (Negative) SARS-CoV-2 (PCR) NEGATIVE (NEGATIVE) 12/14/21 12/14/21 12/15/21 Range/Units 20:49 20:58 00:49 WBC (4.0-10.5) K/mm3 RBC (4.1-5.4) M/mm3 Hgb (12.0-16.0) gm/dl Hct (35-47) % MCV (78-100) fl MCH (26-32) pg MCHC (32-36) g/dl RDW (11.5-14.0) % Plt Count (150-450) K/mm3 MPV (7.5-11.0) fl Gran % (36.0-66.0) % Eos # (Auto) (0-0.5) Absolute Lymphs (auto) (1.0-4.6) Absolute Monos (auto) (0.0-1.3) Lymphocytes % (24.0-44.0) % Monocytes % (0.0-12.0) % Eosinophils % (0.00-5.0) % Basophils % (0.0-0.4) % Absolute Granulocytes (1.4-6.9) Basophils # (0-0.4) Sodium (137-145) mmol/L Potassium (3.5-5.1) mmol/L Chloride (98-107) mmol/L Carbon Dioxide (22-30) mmol/L Anion Gap (5-15) MEQ/L BUN (7-17) mg/dL Creatinine (0.52-1.04) mg/dL Estimated GFR ML/MIN Glucose (74-106) mg/dL POC Glucometer 207 H (74 to 106) mg/dL Calcium (8.4-10.2) mg/dL Total Bilirubin (0.2-1.3) mg/dL AST (14-36) U/L ALT (0-35) U/L Alkaline Phosphatase (38-126) U/L Troponin I < 0.012 < 0.012 (0.000-0.034) ng/mL NT-Pro-B Natriuret Pep (0-900) pg/mL Serum Total Protein (6.3-8.2) g/dL Albumin (3.5-5.0) g/dL Urine Color (YELLOW) Urine Appearance (CLEAR) Urine pH (5-6) Ur Specific [place] (1.005-1.025) Urine Protein (Negative) Urine Ketones (NEGATIVE) Urine Blood (0-5) Vincent/ul Urine Nitrite (NEGATIVE) Urine Bilirubin (NEGATIVE) Urine Urobilinogen (0-1) mg/dL Ur Leukocyte Esterase (NEGATIVE) Urine WBC (Auto) (0-5) /HPF Urine RBC (Auto) (0-2) /HPF Urine Bacteria (Auto) (NEGATIVE) /HPF Urine Mucus (Auto) (NEGATIVE) /HPF Urine Culture Reflexed (NO) Urine Glucose (NEGATIVE) mg/dL Influenza Type A Ag (NEGATIVE) Influenza Type B Ag (NEGATIVE) RSV (PCR) (Negative) SARS-CoV-2 (PCR) (NEGATIVE) 12/15/21 12/15/21 12/15/21 Range/Units 03:19 03:19 03:19 WBC 11.0 H (4.0-10.5) K/mm3 RBC 3.11 L (4.1-5.4) M/mm3 Hgb 8.6 L (12.0-16.0) gm/dl Hct 26.4 L (35-47) % MCV 84.9 (78-100) fl MCH 27.7 (26-32) pg MCHC 32.6 (32-36) g/dl RDW 13.5 (11.5-14.0) % Plt Count 129 L (150-450) K/mm3 MPV 9.7 (7.5-11.0) fl Gran % 84.4 H (36.0-66.0) % Eos # (Auto) 0.01 (0-0.5) Absolute Lymphs (auto) 0.72 L (1.0-4.6) Absolute Monos (auto) 0.95 (0.0-1.3) Lymphocytes % 6.6 L (24.0-44.0) % Monocytes % 8.7 (0.0-12.0) % Eosinophils % 0.1 (0.00-5.0) % Basophils % 0.2 (0.0-0.4) % Absolute Granulocytes 9.26 H (1.4-6.9) Basophils # 0.02 (0-0.4) Sodium 128 L (137-145) mmol/L Potassium 5.0 (3.5-5.1) mmol/L Chloride 103 (98-107) mmol/L Carbon Dioxide 18 L (22-30) mmol/L Anion Gap 11.2 (5-15) MEQ/L BUN 49 H (7-17) mg/dL Creatinine 3.58 H (0.52-1.04) mg/dL Estimated GFR 13.3 ML/MIN Glucose 157 H (74-106) mg/dL POC Glucometer (74 to 106) mg/dL Calcium 7.8 L (8.4-10.2) mg/dL Total Bilirubin 0.40 (0.2-1.3) mg/dL AST 17 (14-36) U/L ALT 18 (0-35) U/L Alkaline Phosphatase 103 (38-126) U/L Troponin I < 0.012 (0.000-0.034) ng/mL NT-Pro-B Natriuret Pep (0-900) pg/mL Serum Total Protein 6.0 L (6.3-8.2) g/dL Albumin 3.1 L (3.5-5.0) g/dL Urine Color (YELLOW) Urine Appearance (CLEAR) Urine pH (5-6) Ur Specific [place] (1.005-1.025) Urine Protein (Negative) Urine Ketones (NEGATIVE) Urine Blood (0-5) Vincent/ul Urine Nitrite (NEGATIVE) Urine Bilirubin (NEGATIVE) Urine Urobilinogen (0-1) mg/dL Ur Leukocyte Esterase (NEGATIVE) Urine WBC (Auto) (0-5) /HPF Urine RBC (Auto) (0-2) /HPF Urine Bacteria (Auto) (NEGATIVE) /HPF Urine Mucus (Auto) (NEGATIVE) /HPF Urine Culture Reflexed (NO) Urine Glucose (NEGATIVE) mg/dL Influenza Type A Ag (NEGATIVE) Influenza Type B Ag (NEGATIVE) RSV (PCR) (Negative) SARS-CoV-2 (PCR) (NEGATIVE) 12/15/21 Range/Units 09:29 WBC (4.0-10.5) K/mm3 RBC (4.1-5.4) M/mm3 Hgb (12.0-16.0) gm/dl Hct (35-47) % MCV (78-100) fl MCH (26-32) pg MCHC (32-36) g/dl RDW (11.5-14.0) % Plt Count (150-450) K/mm3 MPV (7.5-11.0) fl Gran % (36.0-66.0) % Eos # (Auto) (0-0.5) Absolute Lymphs (auto) (1.0-4.6) Absolute Monos (auto) (0.0-1.3) Lymphocytes % (24.0-44.0) % Monocytes % (0.0-12.0) % Eosinophils % (0.00-5.0) % Basophils % (0.0-0.4) % Absolute Granulocytes (1.4-6.9) Basophils # (0-0.4) Sodium (137-145) mmol/L Potassium (3.5-5.1) mmol/L Chloride (98-107) mmol/L Carbon Dioxide (22-30) mmol/L Anion Gap (5-15) MEQ/L BUN (7-17) mg/dL Creatinine (0.52-1.04) mg/dL Estimated GFR ML/MIN Glucose (74-106) mg/dL POC Glucometer 205 H (74 to 106) mg/dL Calcium (8.4-10.2) mg/dL Total Bilirubin (0.2-1.3) mg/dL AST (14-36) U/L ALT (0-35) U/L Alkaline Phosphatase (38-126) U/L Troponin I (0.000-0.034) ng/mL NT-Pro-B Natriuret Pep (0-900) pg/mL Serum Total Protein (6.3-8.2) g/dL Albumin (3.5-5.0) g/dL Urine Color (YELLOW) Urine Appearance (CLEAR) Urine pH (5-6) Ur Specific [place] (1.005-1.025) Urine Protein (Negative) Urine Ketones (NEGATIVE) Urine Blood (0-5) Vincent/ul Urine Nitrite (NEGATIVE) Urine Bilirubin (NEGATIVE) Urine Urobilinogen (0-1) mg/dL Ur Leukocyte Esterase (NEGATIVE) Urine WBC (Auto) (0-5) /HPF Urine RBC (Auto) (0-2) /HPF Urine Bacteria (Auto) (NEGATIVE) /HPF Urine Mucus (Auto) (NEGATIVE) /HPF Urine Culture Reflexed (NO) Urine Glucose (NEGATIVE) mg/dL Influenza Type A Ag (NEGATIVE) Influenza Type B Ag (NEGATIVE) RSV (PCR) (Negative) SARS-CoV-2 (PCR) (NEGATIVE) Microbiology 12/14/21 16:17 Urine Culture - Preliminary Urine, Void GRAM NEGATIVE ID AND SENSITIVITY PENDING Accuchecks Date 12/15/21 - Other Procedures and Tests Respiratory Therapy 12/14/21 20:12 Oxygen Nasal Cannula 2 lpm 12/15/21 11:04 Respiratory Therapy Assessment DAILY Assessment/Plan (1) Urinary tract infection Current Visit: Yes Status: Acute Qualifiers: Urinary tract infection type: acute pyelonephritis Qualified Code(s): N10 - Acute pyelonephritis Assessment & Plan: Chief Complaint Diagnosis Acute renal injury dehydration metabolic acidosis Allergies Allergy/AdvReac Type Severity Reaction Status Date / Time piroxicam [From Feldene] Allergy Rash Verified 12/14/21 18:23 Vital Signs (Last 24 hours) Temp Pulse Resp BP Pulse Ox 12/15/21 11:04 82 18 92 L 12/15/21 09:46 91 L 12/15/21 08:00 97.0 F 83 15 140/64 96 12/15/21 06:56 93 L 12/15/21 03:20 97.3 F 91 H 22 127/58 93 L 12/15/21 00:00 97.5 F 95 H 18 154/67 94 L 12/14/21 20:00 97.8 F 108 H 24 150/65 93 L 12/14/21 19:23 92 L 12/14/21 18:19 97 12/14/21 18:16 98.2 F 100 H 18 165/67 93 L 12/14/21 17:56 92 L 12/14/21 17:28 96 H 18 157/57 93 L 12/14/21 16:30 104 H 18 115/91 96 12/14/21 15:35 105 H 18 172/67 92 L 12/14/21 14:58 92 L 12/14/21 14:36 98.2 F 103 H 18 178/62 95 Home Medications Medication Instructions Recorded Confirmed Last Taken Type Aspirin 81 gm Chew [Baby 81 mg PO DAILY 12/14/21 12/14/21 12/14/21 History Aspirin 81 mg Chew] Budesonide/Glycopyr/Formoterol 2 puffs IH BID 12/14/21 12/14/21 12/14/21 History [Breztri Aerosphere Inhaler] Ibuprofen 200 mg [Motrin 200 600 mg PO Q8H PRN 12/14/21 12/14/21 12/14/21 History mg] Losartan Potassium 50 mg 100 mg PO DAILY 12/14/21 12/14/21 12/14/21 History [Cozaar 50 MG] Nitroglycerin 0.4 mg Tablet 0.4 mg PO Q5MIN PRN MR X 3 PRN 12/14/21 12/14/21 Unknown History [Nitrostat 0.4 MG Tablet] Omeprazole 40 mg PO DAILY 12/14/21 12/14/21 12/14/21 History Current Medications Generic Name Dose Route Start Last Admin Trade Name Alfredoq PRN Reason Stop Dose Admin Acetaminophen 650 mg 12/14/21 18:19 Acetaminophen 325 Mg Tablet PO 01/13/22 18:18 Q4H PRN PRN PAIN AND/OR FEVER Aspirin 81 mg 12/15/21 10:00 12/15/21 09:52 Aspirin 81 Mg Tablet.Ec PO 01/14/22 09:59 81 mg DAILY SRI Administration Carvedilol 12.5 mg 12/14/21 22:00 12/15/21 09:54 Carvedilol 12.5 Mg Tablet PO 01/13/22 21:59 12.5 mg BID SRI Administration Gabapentin 300 mg 12/14/21 22:00 12/15/21 09:55 Gabapentin 300 Mg Capsule PO 01/13/22 21:59 300 mg BID SRI Administration Sodium Chloride 1,000 mls @ 100 mls/hr 12/14/21 18:19 12/15/21 09:58 Sodium Chloride 0.9% 1000 Ml IV 01/13/22 18:18 100 mls/hr .Q10H SRI Administration Ceftriaxone Sodium/Dextrose 1 g in 50 mls @ 100 mls/hr 12/15/21 10:00 12/15/21 09:55 Rocephin 1 Gm-D5w 50 Ml Bag IV 12/18/21 09:59 100 mls/hr Q24H10 SRI Administration Insulin Glargine 30 unit 12/14/21 22:00 12/15/21 09:54 Insulin Glargine 1 Unit SQ 01/13/22 21:59 30 unit BID SRI Administration Morphine Sulfate 2 mg 12/14/21 18:19 Morphine Sulfate 2 Mg/Ml Inj IV 12/19/21 18:18 Q4H PRN PRN PAIN Nitroglycerin 0.4 mg 12/14/21 19:40 Nitroglycerin 0.4 Mg Tablet Bottle SL 01/13/22 19:39 Q5MIN PRN MR X 3 PRN CHEST PAIN Ondansetron HCl 4 mg 12/14/21 18:19 Ondansetron Hcl 4 Mg/2 Ml Vial IV 01/13/22 18:18 Q6H PRN PRN NAUSEA/VOMITING Pantoprazole Sodium 40 mg 12/15/21 10:00 12/15/21 09:54 Protonix (Pantoprazole) 40 Mg Tablet PO 01/14/22 09:59 Not Given DAILY SRI Breztri Inhaler 0 each 12/15/21 10:00 12/15/21 11:02 IH 01/14/22 09:59 2 each BIDRT SRI Administration Simvastatin 40 mg 12/15/21 10:00 12/15/21 09:52 Simvastatin 20 Mg Tablet PO 01/14/22 09:59 40 mg DAILY SRI Administration Spironolactone 25 mg 12/15/21 10:00 12/15/21 09:52 Spironolactone 25 Mg Tablet PO 01/13/22 21:59 25 mg BID DIURETIC SRI Administration Discontinued Medications Generic Name Dose Route Start Last Admin Trade Name Freq PRN Reason Stop Dose Admin Sodium Chloride 1,000 mls @ 100 mls/hr 12/14/21 16:45 12/14/21 16:35 Sodium Chloride 0.9% 1000 Ml IV 01/13/22 16:44 100 mls/hr .Q10H SRI Administration Ceftriaxone Sodium/Dextrose 1 g in 50 mls @ 100 mls/hr 12/14/21 17:03 12/14/21 17:38 Rocephin 1 Gm-D5w 50 Ml Bag IV 12/14/21 17:32 Infused STAT STA Infusion Ceftriaxone Sodium/Dextrose Confirm 12/14/21 17:03 Rocephin 1 Gm-D5w 50 Ml Bag Administered 12/14/21 17:04 Dose 1 g in 50 mls @ ud IV .STK-MED ONE Sodium Chloride Confirm 12/14/21 16:34 Sodium Chloride 0.9% 1000 Ml Administered 12/14/21 16:35 Dose 1,000 mls @ ud .ROUTE .STK-MED ONE Ibuprofen 600 mg 12/14/21 19:38 Ibuprofen 600 Mg Tablet PO 01/13/22 19:37 Q8H PRN PRN PAIN Losartan Potassium 100 mg 12/15/21 10:00 Losartan Potassium 50 Mg Tablet PO 01/14/22 09:59 DAILY SRI Miscellaneous Information 1 each 12/15/21 08:00 Medication Intervention 1 Each Each 01/14/22 07:59 .RT TO CHECK ON SRI Spironolactone 25 mg 12/14/21 22:00 12/14/21 21:00 Spironolactone 25 Mg Tablet PO 01/13/22 21:59 25 mg BID SRI Administration Tizanidine HCl 8 mg 12/15/21 10:00 Tizanidine Hcl 4 Mg Tablet PO 01/14/22 09:59 DAILY SRI Intake & Output (Last 24 hours) 12/13/21 12/14/21 12/15/21 12/16/21 11:59 11:59 11:59 11:59 Intake Total 2727 Output Total 700 Balance 2026 Weight 104.4 kg Microbiology Results (Last 24 hours) 12/14/21 16:17 Urine, Void Urine Culture - Preliminary GRAM NEGATIVE ID AND SENSITIVITY PENDING Laboratory Results (Last 24 hours) 12/15/21 12/15/21 12/15/21 12:02 09:29 03:19 WBC RBC Hgb Hct MCV MCH MCHC RDW Plt Count MPV Gran % Eos # (Auto) Absolute Lymphs (auto) Absolute Monos (auto) Lymphocytes % Monocytes % Eosinophils % Basophils % Absolute Granulocytes Basophils # Sodium 128 L Potassium 5.0 Chloride 103 Carbon Dioxide 18 L Anion Gap 11.2 BUN 49 H Creatinine 3.58 H Estimated GFR 13.3 Glucose 157 H POC Glucometer 240 H 205 H Calcium 7.8 L Total Bilirubin 0.40 AST 17 ALT 18 Alkaline Phosphatase 103 Troponin I NT-Pro-B Natriuret Pep Serum Total Protein 6.0 L Albumin 3.1 L Urine Color Urine Appearance Urine pH Ur Specific [place] Urine Protein Urine Ketones Urine Blood Urine Nitrite Urine Bilirubin Urine Urobilinogen Ur Leukocyte Esterase Urine WBC (Auto) Urine RBC (Auto) Urine Bacteria (Auto) Urine Mucus (Auto) Urine Culture Reflexed Urine Glucose Influenza Type A Ag Influenza Type B Ag RSV (PCR) SARS-CoV-2 (PCR) 12/15/21 12/15/21 12/15/21 03:19 03:19 00:49 WBC 11.0 H RBC 3.11 L Hgb 8.6 L Hct 26.4 L MCV 84.9 MCH 27.7 MCHC 32.6 RDW 13.5 Plt Count 129 L MPV 9.7 Gran % 84.4 H Eos # (Auto) 0.01 Absolute Lymphs (auto) 0.72 L Absolute Monos (auto) 0.95 Lymphocytes % 6.6 L Monocytes % 8.7 Eosinophils % 0.1 Basophils % 0.2 Absolute Granulocytes 9.26 H Basophils # 0.02 Sodium Potassium Chloride Carbon Dioxide Anion Gap BUN Creatinine Estimated GFR Glucose POC Glucometer Calcium Total Bilirubin AST ALT Alkaline Phosphatase Troponin I < 0.012 < 0.012 NT-Pro-B Natriuret Pep Serum Total Protein Albumin Urine Color Urine Appearance Urine pH Ur Specific [place] Urine Protein Urine Ketones Urine Blood Urine Nitrite Urine Bilirubin Urine Urobilinogen Ur Leukocyte Esterase Urine WBC (Auto) Urine RBC (Auto) Urine Bacteria (Auto) Urine Mucus (Auto) Urine Culture Reflexed Urine Glucose Influenza Type A Ag Influenza Type B Ag RSV (PCR) SARS-CoV-2 (PCR) 12/14/21 12/14/21 12/14/21 20:58 20:49 16:51 WBC RBC Hgb Hct MCV MCH MCHC RDW Plt Count MPV Gran % Eos # (Auto) Absolute Lymphs (auto) Absolute Monos (auto) Lymphocytes % Monocytes % Eosinophils % Basophils % Absolute Granulocytes Basophils # Sodium Potassium Chloride Carbon Dioxide Anion Gap BUN Creatinine Estimated GFR Glucose POC Glucometer 207 H Calcium Total Bilirubin AST ALT Alkaline Phosphatase Troponin I < 0.012 NT-Pro-B Natriuret Pep Serum Total Protein Albumin Urine Color Urine Appearance Urine pH Ur Specific [place] Urine Protein Urine Ketones Urine Blood Urine Nitrite Urine Bilirubin Urine Urobilinogen Ur Leukocyte Esterase Urine WBC (Auto) Urine RBC (Auto) Urine Bacteria (Auto) Urine Mucus (Auto) Urine Culture Reflexed Urine Glucose Influenza Type A Ag NEGATIVE Influenza Type B Ag NEGATIVE RSV (PCR) NEGATIVE SARS-CoV-2 (PCR) NEGATIVE 12/14/21 12/14/21 12/14/21 16:34 16:17 14:45 WBC RBC Hgb Hct MCV MCH MCHC RDW Plt Count MPV Gran % Eos # (Auto) Absolute Lymphs (auto) Absolute Monos (auto) Lymphocytes % Monocytes % Eosinophils % Basophils % Absolute Granulocytes Basophils # Sodium Potassium Chloride Carbon Dioxide Anion Gap BUN Creatinine Estimated GFR Glucose POC Glucometer Calcium Total Bilirubin AST ALT Alkaline Phosphatase Troponin I < 0.012 < 0.012 NT-Pro-B Natriuret Pep Serum Total Protein Albumin Urine Color AMOR Urine Appearance TURBID Urine pH 6.0 Ur Specific [place] 1.008 Urine Protein >=500 Urine Ketones NEGATIVE Urine Blood MODERATE Urine Nitrite NEGATIVE Urine Bilirubin NEGATIVE Urine Urobilinogen NEGATIVE Ur Leukocyte Esterase LARGE Urine WBC (Auto) >100 Urine RBC (Auto) 16-25 Urine Bacteria (Auto) MANY Urine Mucus (Auto) SLIGHT Urine Culture Reflexed YES Urine Glucose 150 Influenza Type A Ag Influenza Type B Ag RSV (PCR) SARS-CoV-2 (PCR) 12/14/21 12/14/21 14:45 14:45 WBC 12.8 H RBC 3.69 L Hgb 10.1 L Hct 31.6 L MCV 85.6 MCH 27.4 MCHC 32.0 RDW 13.5 Plt Count 146 L MPV 10.6 Gran % 89.9 H Eos # (Auto) 0.02 Absolute Lymphs (auto) 0.63 L Absolute Monos (auto) 0.63 Lymphocytes % 4.9 L Monocytes % 4.9 Eosinophils % 0.2 Basophils % 0.1 Absolute Granulocytes 11.48 H Basophils # 0.01 Sodium 128 L Potassium 5.5 H Chloride 100 Carbon Dioxide 16 L* Anion Gap 17.6 H BUN 52 H Creatinine 3.60 H Estimated GFR 13.2 Glucose 179 H POC Glucometer Calcium 8.3 L Total Bilirubin 0.70 AST 23 ALT 24 Alkaline Phosphatase 124 Troponin I NT-Pro-B Natriuret Pep 1100 H Serum Total Protein 6.5 Albumin 3.6 Urine Color Urine Appearance Urine pH Ur Specific [place] Urine Protein Urine Ketones Urine Blood Urine Nitrite Urine Bilirubin Urine Urobilinogen Ur Leukocyte Esterase Urine WBC (Auto) Urine RBC (Auto) Urine Bacteria (Auto) Urine Mucus (Auto) Urine Culture Reflexed Urine Glucose Influenza Type A Ag Influenza Type B Ag RSV (PCR) SARS-CoV-2 (PCR) Orders (Last 24 hours) Category Date Time Status Bedrest ROUTINE Activity 12/14/21 18:19 Active Turntable Man STAT Care 12/14/21 14:51 Completed Code Status Order ROUTINE Care 12/14/21 18:19 Active EKG-ER Only STAT Care 12/14/21 14:50 Completed IV Care Q6H Care 12/14/21 18:19 Active IV Insertion STAT Care 12/14/21 14:50 Completed POCT Glucose Check ACHS Care 12/15/21 06:[address] in Observation ROUTINE Care 12/14/21 18:19 Active Pulse Oximetry (ED) STAT Care 12/14/21 14:50 Completed Telemetry q6h Care 12/14/21 18:19 Active Consult Nephrology ROUTINE Cons 12/15/21 08:29 Active CBC W DIFF AM.LAB Lab 12/15/21 03:19 Completed CBC W DIFF Stat Lab 12/14/21 14:45 Completed CMP AM.LAB Lab 12/15/21 03:19 Completed CMP Stat Lab 12/14/21 14:45 Completed CULTURE,URINE Stat Lab 12/14/21 16:17 Results NT PRO BNP Stat Lab 12/14/21 14:45 Completed POCT GLUCOSE Stat Lab 12/14/21 20:49 Completed POCT GLUCOSE Stat Lab 12/15/21 09:29 Completed POCT GLUCOSE Stat Lab 12/15/21 12:02 Completed TROPONIN Q3H Lab 12/14/21 14:45 Completed TROPONIN Q3H Lab 12/14/21 16:34 Completed TROPONIN Q3H Lab 12/14/21 20:58 Completed TROPONIN Q3H Lab 12/15/21 00:49 Completed TROPONIN Q3H Lab 12/15/21 03:19 Completed UA W/RFX UR CULTURE Stat Lab 12/14/21 16:17 Completed Acetaminophen 325 mg [Tylenol 325 mg] Med 12/14/21 18:19 Active 650 mg PO Q4H PRN PRN Aspirin EC 81 mg [Ecotrin 81 mg] Med 12/15/21 10:00 Active 81 mg PO DAILY Carvedilol 12.5 mg [Coreg 12.5 mg] Med 12/14/21 22:00 Active 12.5 mg PO BID Ceftriaxone 1 GM/50 ML PREMIX* [ROCEPHIN 1 Gm-D5w 50 ml Med 12/15/21 10:00 Active Bag] 1 g in 50 ml IV Q24H10 Ceftriaxone 1 GM/50 ML PREMIX* [ROCEPHIN 1 Gm-D5w 50 ml Med 12/14/21 17:03 Discontinued Bag] 1 g in 50 ml IV STAT Ceftriaxone 1 GM/50 ML PREMIX* [ROCEPHIN 1 Gm-D5w 50 ml Med 12/14/21 17:03 Discontinued Bag] 1 g in 50 ml IV UD Gabapentin 300 mg [Neurontin 300 mg] Med 12/14/21 22:00 Active 300 mg PO BID Ibuprofen 600 mg [Motrin 600 mg] Med 12/14/21 19:38 Discontinued 600 mg PO Q8H PRN PRN Insulin Glargine [Lantus Insulin] Med 12/14/21 22:00 Active 30 unit SQ BID Losartan Potassium 50 mg [Cozaar 50 MG] Med 12/15/21 10:00 Discontinued 100 mg PO DAILY Medication Intervention Med 12/15/21 08:00 Discontinued 1 each MC .RT TO CHECK ON Morphine Sulfate 2 mg Inj Med 12/14/21 18:19 Active 2 mg IV Q4H PRN PRN NaCl 0.9% 1000 ml [Sodium Chloride 0.9% 1000 ML] 1,000 Med 12/14/21 16:34 Discontinued ml .ROUTE UD NaCl 0.9% 1000 ml [Sodium Chloride 0.9% 1000 ML] 1,000 Med 12/14/21 16:45 Discontinued ml IV 100 mls/hr NaCl 0.9% 1000 ml [Sodium Chloride 0.9% 1000 ML] 1,000 Med 12/14/21 18:19 Active ml IV 100 mls/hr Nitroglycerin 0.4 mg Tablet [Nitrostat 0.4 MG Tablet Med 12/14/21 19:40 Active ] 0.4 mg SL Q5MIN PRN MR X 3 PRN Ondansetron HCl 4 mg/2 ml [Zofran 4 MG/2 ML VIAL] Med 12/14/21 18:19 Active 4 mg IV Q6H PRN PRN PANTOPRAZOLE 40 mg Tablet [Protonix 40MG Tablet] Med 12/15/21 10:00 Active 40 mg PO DAILY Patient Own Med [Patient Own Medication] Med 12/15/21 10:00 Active See Dose Instructions IH BIDRT Simvastatin 20Mg [Zocor 20Mg] Med 12/15/21 10:00 Active 40 mg PO DAILY Spironolactone 25 mg [Aldactone 25 MG] Med 12/14/21 22:00 Discontinued 25 mg PO BID Spironolactone 25 mg [Aldactone 25 MG] Med 12/15/21 10:00 Active 25 mg PO BID DIURETIC Tizanidine HCl 4 mg [Zanaflex 4 MG] Med 12/15/21 10:00 Discontinued 8 mg PO DAILY Oxygen Nasal Cannula 2 lpm RT 12/14/21 20:12 Active Pulse Oximetry .overnight RT 12/15/21 10:40 Active Pulse Oximetry .spot check RT 12/14/21 18:19 Active Respiratory Therapy Assessment DAILY RT 12/15/21 11:04 Active Patient Care Notes (Last 24 hours) 12/15/21 11:22 Case Management Note by Fe Alvarez PATIENT REQUIRED O2 LAST NIGHT WHILE SLEEPING. PATIENT DOES NOT WEAR OXYGEN OR CPAP AT HOME NOR HAS BEEN ORDERED TO. OVERNIGHT PULSE OX ORDERED FOR THIS EVENING. OXYGEN ORDER FORM WITH INSTRUCTIONS PLACED ON CHART FOR WEEKEND IF PATIENT QUALIFIES AND NEEDS NIGHT TIME O2 AT DC Initialized on 12/15/21 11:22 - END OF NOTE 12/15/21 09:08 (created 12/15/21 09:35) Nursing Note by Michaelle Ghosh CALLED CONSULT TO [facility] OFFICE Initialized on 12/15/21 09:35 - END OF NOTE 12/15/21 08:57 Nursing Note by Sunitha Singh Spoke with Dr. Villanueva, orders received to hold ibuprofen, losatan, and zanafl ex. Hold orders put in. Initialized on 12/15/21 08:57 - END OF NOTE 12/14/21 20:12 Respiratory Note by Genna Rashid RN CALLED AND STATES SHE PLACED 2L OXYGEN ON PT. PT'S SATS DROPPED WHILE SHE WAS SLEEPING. Initialized on 12/14/21 20:12 - END OF NOTE Code(s): N39.0 - URINARY TRACT INFECTION, SITE NOT SPECIFIED (2) Acute renal injury Current Visit: Yes Status: Acute Code(s): N17.9 - ACUTE KIDNEY FAILURE, UNSPECIFIED (3) Hyperkalemia Current Visit: Yes Status: Acute Code(s): E87.5 - HYPERKALEMIA (4) Hyponatremia Current Visit: Yes Status: Acute Code(s): E87.1 - HYPO-OSMOLALITY AND HYPONATREMIA (5) Metabolic acidosis Current Visit: Yes Status: Acute Code(s): E87.2 - ACIDOSIS
[2021-12-15 18:52] LABS: CREATININE,URINE RANDOM 46.1 MG/DL
[2021-12-15] MEDS: SODIUM BICARBONATE PO SCH (22:37)
[2021-12-15] MEDS: HUMALOG SQ PRN (22:40)
[2021-12-16] MEDS: Sodium Chloride 0.9% 1000 ML 1,000 ML IV SCH ×2 (05:38→16:09)
[2021-12-16] MEDS: PATIENT OWN MEDICATION IH SCH (06:51)
[2021-12-16 06:52] LABS: Absolute Neutrophil Ct (ANC) 7.68 (1.4-6.9); Basophil (Absolute #) 0.01 (0-0.4); Eosinophil % 0.7 % (0.00-5.0); Eosinophil (Absolute #) 0.07 (0-0.5); Hematocrit 24.7 % (35-47); Hemoglobin 7.9 gm/dl (12.0-16.0); Lymphocyte (Absolute #) 0.84 (1.0-4.6); Lymphocytes % 8.8 % (24.0-44.0); Mean Cell Volume 86.7 fl (78-100); Mean Corpuscular Hemoglobin 27.7 pg (26-32); Mean Platelet Volume 10.6 fl (7.5-11.0); Monocyte (Absolute #) 0.93 (0.0-1.3); Monocytes % 9.8 % (0.0-12.0); Neutrophil % 80.6 % (36.0-66.0); Platelet Count 161 K/mm3 (150-450); Red Blood Count 2.85 M/mm3 (4.1-5.4); Red Cell Distribution Width 13.8 % (11.5-14.0); White Blood Count 9.5 K/mm3 (4.0-10.5)
[2021-12-16 07:00] LABS: ALBUMIN 2.8 g/dL (3.5-5.0); ANION GAP 12.1 MEQ/L (5-15); BILIRUBIN,TOTAL 0.4 mg/dL (0.2-1.3); Calcium 7.8 mg/dL (8.4-10.2); Creatinine 1 3.31 mg/dL (0.52-1.04); EST GLOMERULAR FILTRATION RATE 14.5 ML/MIN; Potassium 4.8 mmol/L (3.5-5.1)
[2021-12-16] MEDS ORDERED: APRESOLINE 20 MG/ML INJ IV PRN (08:48)
[2021-12-16] MEDS: NEURONTIN 300 MG PO SCH ×2 (09:02→21:34)
[2021-12-16] MEDS: SODIUM BICARBONATE PO SCH ×2 (09:03→21:34)
[2021-12-16] MEDS: COREG 12.5 MG PO SCH ×2 (09:03→21:34)
[2021-12-16] MEDS: ZOCOR 20MG PO SCH (09:03)
[2021-12-16] MEDS: Protonix 40MG Tablet PO SCH (09:03)
[2021-12-16] MEDS: Lantus Insulin SQ SCH ×2 (09:04→21:35)
[2021-12-16] MEDS: HUMALOG SQ PRN ×2 (09:05→12:42)
[2021-12-16] MEDS: ROCEPHIN 1 Gm-D5w 50 ml Bag** 1 G/50 ML IVPB IV SCH (09:05)
[2021-12-16] MEDS: ECOTRIN 81 MG PO SCH (09:05)
--- NOTE | 2021-12-16 15:57 | PCM.NOTE ---
Date and Time: 12/16/21 1552 Subjective Assessment: Her CO2 down to 15 this morning. On 1500 cc fluid restriction. She is feeling good and would like to go home today. She cries when told she will have to stay; apparently she does the laundry etc and her doesn't know how and has CAD. - Review of Systems Constitutional: No Fever Abdominal/Gastrointestinal: No Vomiting Objective Exam General Appearance: no apparent distress, obese Neurologic Exam: alert, oriented x 3, cooperative, normal mood/affect Skin Exam: normal color, warm, dry, No rash Eye Exam: eyes nml inspection Ears, Nose, Throat Exam: dry mucous membranes Neck Exam: normal inspection Respiratory Exam: normal breath sounds, lungs clear, No crackles/rales, No rhonchi, No wheezing Cardiovascular Exam: regular rate/rhythm, normal heart sounds, No murmur Gastrointestinal/Abdomen Exam: soft, normal bowel sounds, No tenderness, No distention, No mass, No guarding, No rebound Extremity Exam: normal inspection, swelling (2+ ankle edema bilat) Back Exam: normal inspection, No CVA tenderness, No rash OBJECTIVE DATA Vital Signs: Vital Signs - 24 hr Temp Pulse Resp BP Pulse Ox 12/16/21 11:44 97.1 F 72 18 143/64 95 12/16/21 07:12 97.1 F 84 18 125/61 94 L 12/16/21 06:52 76 18 93 L 12/16/21 04:00 98.4 F 98 H 18 135/60 88 L 12/16/21 00:00 97.8 F 93 H 18 148/66 96 12/15/21 22:10 96 H 24 89 L 12/15/21 20:00 97.8 F 106 H 19 189/78 94 L 12/15/21 16:00 97.1 F 95 H 20 192/78 91 L Pain Assessment - Last Documented Pain Intensity 0 Intake and Output: Intake & Output 12/14/21 12/15/21 12/16/21 12/17/21 11:59 11:59 11:59 11:59 Intake Total 9507 2464 240 Output Total 700 1600 Balance 2026 864 240 Weight 104.4 kg Lab Results: Lab Results-Last 24 Hours 12/15/21 12/15/21 12/15/21 Range/Units 03:00 11:17 16:52 WBC (4.0-10.5) K/mm3 RBC (4.1-5.4) M/mm3 Hgb (12.0-16.0) gm/dl Hct (35-47) % MCV (78-100) fl MCH (26-32) pg MCHC (32-36) g/dl RDW (11.5-14.0) % Plt Count (150-450) K/mm3 MPV (7.5-11.0) fl Gran % (36.0-66.0) % Eos # (Auto) (0-0.5) Absolute Lymphs (auto) (1.0-4.6) Absolute Monos (auto) (0.0-1.3) Lymphocytes % (24.0-44.0) % Monocytes % (0.0-12.0) % Eosinophils % (0.00-5.0) % Basophils % (0.0-0.4) % Absolute Granulocytes (1.4-6.9) Basophils # (0-0.4) Sodium (137-145) mmol/L Potassium (3.5-5.1) mmol/L Chloride (98-107) mmol/L Carbon Dioxide (22-30) mmol/L Anion Gap (5-15) MEQ/L BUN (7-17) mg/dL Creatinine (0.52-1.04) mg/dL Estimated GFR ML/MIN Glucose (74-106) mg/dL POC Glucometer 223 H (74 to 106) mg/dL Calcium (8.4-10.2) mg/dL Total Bilirubin (0.2-1.3) mg/dL AST (14-36) U/L ALT (0-35) U/L Alkaline Phosphatase (38-126) U/L Serum Total Protein (6.3-8.2) g/dL Albumin (3.5-5.0) g/dL Folic Acid > 19.0 (2.76 - >20) ng/mL Ur Random Creatinine MG/DL U Random Total Protein (0-12) mg/dL Urine Sodium (30-90) mmol/L Stl Occult Blood (IFOB) NEGATIVE (NEGATIVE) 12/15/21 12/15/21 12/16/21 Range/Units 18:39 21:49 05:35 WBC 9.5 (4.0-10.5) K/mm3 RBC 2.85 L (4.1-5.4) M/mm3 Hgb 7.9 L (12.0-16.0) gm/dl Hct 24.7 L (35-47) % MCV 86.7 (78-100) fl MCH 27.7 (26-32) pg MCHC 32.0 (32-36) g/dl RDW 13.8 (11.5-14.0) % Plt Count 161 (150-450) K/mm3 MPV 10.6 (7.5-11.0) fl Gran % 80.6 H (36.0-66.0) % Eos # (Auto) 0.07 (0-0.5) Absolute Lymphs (auto) 0.84 L (1.0-4.6) Absolute Monos (auto) 0.93 (0.0-1.3) Lymphocytes % 8.8 L (24.0-44.0) % Monocytes % 9.8 (0.0-12.0) % Eosinophils % 0.7 (0.00-5.0) % Basophils % 0.1 (0.0-0.4) % Absolute Granulocytes 7.68 H (1.4-6.9) Basophils # 0.01 (0-0.4) Sodium (137-145) mmol/L Potassium (3.5-5.1) mmol/L Chloride (98-107) mmol/L Carbon Dioxide (22-30) mmol/L Anion Gap (5-15) MEQ/L BUN (7-17) mg/dL Creatinine (0.52-1.04) mg/dL Estimated GFR ML/MIN Glucose (74-106) mg/dL POC Glucometer 255 H (74 to 106) mg/dL Calcium (8.4-10.2) mg/dL Total Bilirubin (0.2-1.3) mg/dL AST (14-36) U/L ALT (0-35) U/L Alkaline Phosphatase (38-126) U/L Serum Total Protein (6.3-8.2) g/dL Albumin (3.5-5.0) g/dL Folic Acid (2.76 - >20) ng/mL Ur Random Creatinine 46.1 MG/DL U Random Total Protein 73 H (0-12) mg/dL Urine Sodium 43 (30-90) mmol/L Stl Occult Blood (IFOB) (NEGATIVE) 12/16/21 12/16/21 12/16/21 Range/Units 05:35 06:45 11:19 WBC (4.0-10.5) K/mm3 RBC (4.1-5.4) M/mm3 Hgb (12.0-16.0) gm/dl Hct (35-47) % MCV (78-100) fl MCH (26-32) pg MCHC (32-36) g/dl RDW (11.5-14.0) % Plt Count (150-450) K/mm3 MPV (7.5-11.0) fl Gran % (36.0-66.0) % Eos # (Auto) (0-0.5) Absolute Lymphs (auto) (1.0-4.6) Absolute Monos (auto) (0.0-1.3) Lymphocytes % (24.0-44.0) % Monocytes % (0.0-12.0) % Eosinophils % (0.00-5.0) % Basophils % (0.0-0.4) % Absolute Granulocytes (1.4-6.9) Basophils # (0-0.4) Sodium 131 L (137-145) mmol/L Potassium 4.8 (3.5-5.1) mmol/L Chloride 109 H (98-107) mmol/L Carbon Dioxide 15 L* (22-30) mmol/L Anion Gap 12.1 (5-15) MEQ/L BUN 48 H (7-17) mg/dL Creatinine 3.31 H (0.52-1.04) mg/dL Estimated GFR 14.5 ML/MIN Glucose 182 H (74-106) mg/dL POC Glucometer 172 H 199 H (74 to 106) mg/dL Calcium 7.8 L (8.4-10.2) mg/dL Total Bilirubin 0.40 (0.2-1.3) mg/dL AST 15 (14-36) U/L ALT 15 (0-35) U/L Alkaline Phosphatase 113 (38-126) U/L Serum Total Protein 6.0 L (6.3-8.2) g/dL Albumin 2.8 L (3.5-5.0) g/dL Folic Acid (2.76 - >20) ng/mL Ur Random Creatinine MG/DL U Random Total Protein (0-12) mg/dL Urine Sodium (30-90) mmol/L Stl Occult Blood (IFOB) (NEGATIVE) 12/16/21 Range/Units 11:19 WBC (4.0-10.5) K/mm3 RBC (4.1-5.4) M/mm3 Hgb (12.0-16.0) gm/dl Hct (35-47) % MCV (78-100) fl MCH (26-32) pg MCHC (32-36) g/dl RDW (11.5-14.0) % Plt Count (150-450) K/mm3 MPV (7.5-11.0) fl Gran % (36.0-66.0) % Eos # (Auto) (0-0.5) Absolute Lymphs (auto) (1.0-4.6) Absolute Monos (auto) (0.0-1.3) Lymphocytes % (24.0-44.0) % Monocytes % (0.0-12.0) % Eosinophils % (0.00-5.0) % Basophils % (0.0-0.4) % Absolute Granulocytes (1.4-6.9) Basophils # (0-0.4) Sodium (137-145) mmol/L Potassium (3.5-5.1) mmol/L Chloride (98-107) mmol/L Carbon Dioxide (22-30) mmol/L Anion Gap (5-15) MEQ/L BUN (7-17) mg/dL Creatinine (0.52-1.04) mg/dL Estimated GFR ML/MIN Glucose (74-106) mg/dL POC Glucometer 199 H (74 to 106) mg/dL Calcium (8.4-10.2) mg/dL Total Bilirubin (0.2-1.3) mg/dL AST (14-36) U/L ALT (0-35) U/L Alkaline Phosphatase (38-126) U/L Serum Total Protein (6.3-8.2) g/dL Albumin (3.5-5.0) g/dL Folic Acid (2.76 - >20) ng/mL Ur Random Creatinine MG/DL U Random Total Protein (0-12) mg/dL Urine Sodium (30-90) mmol/L Stl Occult Blood (IFOB) (NEGATIVE) Radiology Exams: Radiology Procedures Category Date Time Status KIDNEY [US] Routine Exams 12/18/21 00:00 Ordered Assessment/Plan (1) Anemia Current Visit: Yes Status: Acute Qualifiers: Anemia type: unspecified type Qualified Code(s): D64.9 - Anemia, unspecified Assessment & Plan: Decreased from 10.1 to 7.9 hgb since admission. If dips below 7, would transfuse. Code(s): D64.9 - ANEMIA, UNSPECIFIED (2) Acute renal injury Current Visit: Yes Status: Acute Assessment & Plan: In 2018 her Cr was nearly normal. Code(s): N17.9 - ACUTE KIDNEY FAILURE, UNSPECIFIED (3) Metabolic acidosis Current Visit: Yes Status: Acute Assessment & Plan: Await nephrology recommendations, thank you. Code(s): E87.2 - ACIDOSIS
[2021-12-16 16:35] LABS: ANION GAP 11.1 MEQ/L (5-15); Creatinine 1 3.41 mg/dL (0.52-1.04); Potassium 4.9 mmol/L (3.5-5.1)
[2021-12-17] MEDS: Sodium Chloride 0.9% 1000 ML 1,000 ML IV SCH (02:59)
[2021-12-17] MEDS: PATIENT OWN MEDICATION IH SCH ×2 (06:54→19:14)
[2021-12-17 07:03] LABS: Absolute Neutrophil Ct (ANC) 5.81 (1.4-6.9); Basophil (Absolute #) 0.01 (0-0.4); Eosinophil % 1.9 % (0.00-5.0); Eosinophil (Absolute #) 0.15 (0-0.5); Hematocrit 25.3 % (35-47); Lymphocyte (Absolute #) 1.13 (1.0-4.6); Mean Cell Volume 86.9 fl (78-100); Mean Corpuscular Hemoglobin 27.5 pg (26-32); Mean Corpuscular Hgb Concent. 31.6 g/dl (32-36); Mean Platelet Volume 9.8 fl (7.5-11.0); Monocytes % 12.3 % (0.0-12.0); Neutrophil % 71.7 % (36.0-66.0); Platelet Count 179 K/mm3 (150-450); Red Blood Count 2.91 M/mm3 (4.1-5.4); White Blood Count 8.1 K/mm3 (4.0-10.5)
[2021-12-17 07:32] LABS: ALBUMIN 2.9 g/dL (3.5-5.0); ANION GAP 12.6 MEQ/L (5-15); BILIRUBIN,TOTAL 0.4 mg/dL (0.2-1.3); Calcium 8.1 mg/dL (8.4-10.2); Creatinine 1 3.15 mg/dL (0.52-1.04); EST GLOMERULAR FILTRATION RATE 15.4 ML/MIN; Total Protein 6.1 g/dL (6.3-8.2)
[2021-12-17] MEDS: NEURONTIN 300 MG PO SCH ×2 (09:02→22:34)
[2021-12-17] MEDS: COREG 12.5 MG PO SCH ×2 (09:02→22:34)
[2021-12-17] MEDS: Protonix 40MG Tablet PO SCH (09:02)
[2021-12-17] MEDS: ZOCOR 20MG PO SCH (09:02)
[2021-12-17] MEDS: ROCEPHIN 1 Gm-D5w 50 ml Bag** 1 G/50 ML IVPB IV SCH (09:03)
[2021-12-17] MEDS: SODIUM BICARBONATE PO SCH (09:04)
[2021-12-17] MEDS: ECOTRIN 81 MG PO SCH (09:09)
[2021-12-17] MEDS: Lantus Insulin SQ SCH (09:09)
[2021-12-17] MEDS: HUMALOG SQ PRN ×2 (12:07→17:14)
[2021-12-17] MEDS: Sodium Bicarbonate 50 MEQ/50 ML VIAL*** 150 MEQ in Dextrose 5%/Water IV Soln. 1000 ML 1... IV SCH (12:26)
--- NOTE | 2021-12-17 13:59 | PCM.NOTE ---
Date and Time: 12/17/21 1354 Subjective Assessment: Pt is still feeling fine. Her CO2 is 15 again this morning. Had 1300 out in urine last night. Mitchell po well. - Review of Systems Constitutional: No Fever Abdominal/Gastrointestinal: No Vomiting Objective Exam General Appearance: no apparent distress, alert, obese Neurologic Exam: oriented x 3, cooperative Skin Exam: normal color, warm, dry, No rash Eye Exam: eyes nml inspection Ears, Nose, Throat Exam: moist mucous membranes Neck Exam: normal inspection Respiratory Exam: normal breath sounds, lungs clear, No crackles/rales, No rhonchi, No wheezing Cardiovascular Exam: regular rate/rhythm, normal heart sounds, No murmur Gastrointestinal/Abdomen Exam: soft, normal bowel sounds, No tenderness, No distention, No guarding Extremity Exam: pedal edema (2+ on R, 1+ on L) OBJECTIVE DATA Vital Signs: Vital Signs - 24 hr Temp Pulse Resp BP Pulse Ox 12/17/21 11:46 97.6 F 73 16 179/74 95 12/17/21 07:38 97.1 F 75 16 156/67 92 L 12/17/21 06:54 72 18 92 L 12/17/21 03:49 97.8 F 80 20 153/66 95 12/17/21 00:00 97.9 F 83 20 168/69 92 L 12/16/21 20:00 97.5 F 82 21 167/73 94 L 12/16/21 19:15 79 21 94 L 12/16/21 16:00 96.9 F 72 16 155/65 94 L Pain Assessment - Last Documented Pain Intensity 0 Intake and Output: Intake & Output 12/15/21 12/16/21 12/17/21 12/18/21 11:59 11:59 11:59 11:59 Intake Total 2727 2464 3404 Output Total 700 1600 3050 Balance 2026 864 354 Weight 104.4 kg Lab Results: Lab Results-Last 24 Hours 12/16/21 12/16/21 12/16/21 Range/Units 16:20 16:30 16:33 WBC (4.0-10.5) K/mm3 RBC (4.1-5.4) M/mm3 Hgb (12.0-16.0) gm/dl Hct (35-47) % MCV (78-100) fl MCH (26-32) pg MCHC (32-36) g/dl RDW (11.5-14.0) % Plt Count (150-450) K/mm3 MPV (7.5-11.0) fl Gran % (36.0-66.0) % Eos # (Auto) (0-0.5) Absolute Lymphs (auto) (1.0-4.6) Absolute Monos (auto) (0.0-1.3) Lymphocytes % (24.0-44.0) % Monocytes % (0.0-12.0) % Eosinophils % (0.00-5.0) % Basophils % (0.0-0.4) % Absolute Granulocytes (1.4-6.9) Basophils # (0-0.4) Sodium 133 L (137-145) mmol/L Potassium 4.9 (3.5-5.1) mmol/L Chloride 110 H (98-107) mmol/L Carbon Dioxide 17 L (22-30) mmol/L Anion Gap 11.1 (5-15) MEQ/L BUN 48 H (7-17) mg/dL Creatinine 3.41 H (0.52-1.04) mg/dL Estimated GFR 14.0 ML/MIN Glucose 134 H (74-106) mg/dL POC Glucometer 126 H (74 to 106) mg/dL Calcium 8.0 L (8.4-10.2) mg/dL Total Bilirubin (0.2-1.3) mg/dL AST (14-36) U/L ALT (0-35) U/L Alkaline Phosphatase (38-126) U/L NT-Pro-B Natriuret Pep 2230 H (0-900) pg/mL Serum Total Protein (6.3-8.2) g/dL Albumin (3.5-5.0) g/dL 12/16/21 12/17/21 12/17/21 Range/Units 20:37 06:56 06:56 WBC 8.1 (4.0-10.5) K/mm3 RBC 2.91 L (4.1-5.4) M/mm3 Hgb 8.0 L (12.0-16.0) gm/dl Hct 25.3 L (35-47) % MCV 86.9 (78-100) fl MCH 27.5 (26-32) pg MCHC 31.6 L (32-36) g/dl RDW 14.0 (11.5-14.0) % Plt Count 179 (150-450) K/mm3 MPV 9.8 (7.5-11.0) fl Gran % 71.7 H (36.0-66.0) % Eos # (Auto) 0.15 (0-0.5) Absolute Lymphs (auto) 1.13 (1.0-4.6) Absolute Monos (auto) 1.00 (0.0-1.3) Lymphocytes % 14.0 L (24.0-44.0) % Monocytes % 12.3 H (0.0-12.0) % Eosinophils % 1.9 (0.00-5.0) % Basophils % 0.1 (0.0-0.4) % Absolute Granulocytes 5.81 (1.4-6.9) Basophils # 0.01 (0-0.4) Sodium 136 L (137-145) mmol/L Potassium 5.0 (3.5-5.1) mmol/L Chloride 114 H (98-107) mmol/L Carbon Dioxide 15 L* (22-30) mmol/L Anion Gap 12.6 (5-15) MEQ/L BUN 49 H (7-17) mg/dL Creatinine 3.15 H (0.52-1.04) mg/dL Estimated GFR 15.4 ML/MIN Glucose 75 (74-106) mg/dL POC Glucometer 168 H (74 to 106) mg/dL Calcium 8.1 L (8.4-10.2) mg/dL Total Bilirubin 0.40 (0.2-1.3) mg/dL AST 18 (14-36) U/L ALT 19 (0-35) U/L Alkaline Phosphatase 107 (38-126) U/L NT-Pro-B Natriuret Pep (0-900) pg/mL Serum Total Protein 6.1 L (6.3-8.2) g/dL Albumin 2.9 L (3.5-5.0) g/dL 12/17/21 12/17/21 Range/Units 07:19 11:17 WBC (4.0-10.5) K/mm3 RBC (4.1-5.4) M/mm3 Hgb (12.0-16.0) gm/dl Hct (35-47) % MCV (78-100) fl MCH (26-32) pg MCHC (32-36) g/dl RDW (11.5-14.0) % Plt Count (150-450) K/mm3 MPV (7.5-11.0) fl Gran % (36.0-66.0) % Eos # (Auto) (0-0.5) Absolute Lymphs (auto) (1.0-4.6) Absolute Monos (auto) (0.0-1.3) Lymphocytes % (24.0-44.0) % Monocytes % (0.0-12.0) % Eosinophils % (0.00-5.0) % Basophils % (0.0-0.4) % Absolute Granulocytes (1.4-6.9) Basophils # (0-0.4) Sodium (137-145) mmol/L Potassium (3.5-5.1) mmol/L Chloride (98-107) mmol/L Carbon Dioxide (22-30) mmol/L Anion Gap (5-15) MEQ/L BUN (7-17) mg/dL Creatinine (0.52-1.04) mg/dL Estimated GFR ML/MIN Glucose (74-106) mg/dL POC Glucometer 68 L 162 H (74 to 106) mg/dL Calcium (8.4-10.2) mg/dL Total Bilirubin (0.2-1.3) mg/dL AST (14-36) U/L ALT (0-35) U/L Alkaline Phosphatase (38-126) U/L NT-Pro-B Natriuret Pep (0-900) pg/mL Serum Total Protein (6.3-8.2) g/dL Albumin (3.5-5.0) g/dL Radiology Exams: Radiology Procedures Category Date Time Status KIDNEY [US] Routine Exams 12/18/21 00:00 Ordered Assessment/Plan (1) Acute renal injury Current Visit: Yes Status: Acute Assessment & Plan: I spoke with DR. Celeste today. Will stop the NS and po bicarb (650 po BID) in favor of D5W wtih 150 mEq bicarb drip at 70 mL/hr. Recheck BMP in a.m. Again, pt would like to go home but is clearly not ready due to renal function. Code(s): N17.9 - ACUTE KIDNEY FAILURE, UNSPECIFIED (2) Anemia Current Visit: Yes Status: Chronic Qualifiers: Anemia type: unspecified type Qualified Code(s): D64.9 - Anemia, unspecified Code(s): D64.9 - ANEMIA, UNSPECIFIED (3) Metabolic acidosis Current Visit: Yes Status: Acute Assessment & Plan: per nephrology, thank you. Code(s): E87.2 - ACIDOSIS
[2021-12-17] MEDS: ENOXAPARIN SODIUM SQ SCH (15:27)
[2021-12-18] MEDS: Sodium Bicarbonate 50 MEQ/50 ML VIAL*** 150 MEQ in Dextrose 5%/Water IV Soln. 1000 ML 1... IV SCH (04:15)
[2021-12-18 06:31] LABS: ANION GAP 12.9 MEQ/L (5-15); Calcium 7.9 mg/dL (8.4-10.2); Creatinine 1 2.88 mg/dL (0.52-1.04); Potassium 4.4 mmol/L (3.5-5.1)
[2021-12-18] MEDS: PATIENT OWN MEDICATION IH SCH (07:11)
--- NOTE | 2021-12-18 09:24 | XRAY ---
Indication: Retention. Two-dimensional renal sonogram performed. Comparison: None Both kidneys are normal in reniform shape with normal perfusion. Right kidney measures 10.1 x 4.2 x 4.4 cm and the left measures 12.2 x 5.7 x 4.7 cm. Right midpole demonstrates a 2 cm cortical cyst. No suspicious solid renal mass or hydronephrosis. Corticomedullary differentiation preserved. Urinary bladder is empty with Tol[place] balloon catheter in situ. Impression: Right renal cyst and Tol[place] catheter in situ. Remaining renal sonogram is negative.
[2021-12-18] MEDS: ZOCOR 20MG PO SCH (09:46)
[2021-12-18] MEDS: COREG 12.5 MG PO SCH (09:46)
[2021-12-18] MEDS: ROCEPHIN 1 Gm-D5w 50 ml Bag** 1 G/50 ML IVPB IV SCH (09:46)
[2021-12-18] MEDS: NEURONTIN 300 MG PO SCH (09:46)
[2021-12-18] MEDS: Protonix 40MG Tablet PO SCH (09:46)
[2021-12-18] MEDS: ECOTRIN 81 MG PO SCH (09:46)
[2021-12-18] MEDS: ENOXAPARIN SODIUM SQ SCH (09:47)
[2021-12-18] MEDS: Lantus Insulin SQ SCH ×2 (10:28→10:32)
--- NOTE | 2021-12-18 10:32 | CONS ---
CONSULT DATE: 12/15/2021 REASON FOR CONSULT: Evaluation of increased creatinine. HISTORY: Miss Nakita Kelly is a very pleasant 71-year-old lady. Baseline creatinine is around 1.3 mg%. The patient was initially referred to the emergency room from Dr. Villanueva's office for hypotension and anemia. She was hypotensive in the office. The patient has prior history of hypertension and was on losartan, Spironolactone. She subsequently diagnosed with Pseudomonas urinary tract infection. She was started on fluids. Her NT ProBNP was normal. Blood pressures in the hospital have been within normal limits. The patient's creatinine was around 3.4 mg% and a renal consultation was called. REVIEW OF SYSTEMS: She does have some difficulty in voiding. No fever, chills or rigors. Breathing okay. No chest pain or abdominal pain. She was on ibuprofen, losartan and Spironolactone. No gross vomiting or diarrhea. No dysuria. No bleeding from any of the orifices. The rest of the systems reviewed were negative. All systems were reviewed and pertinent mentioned here. PAST MEDICAL HISTORY: Hypertension, dyslipidemia, diabetes mellitus type II, diabetic neuropathy, gastroesophageal reflux disease. PAST SURGICAL HISTORY: Hysterectomy. Bladder lift surgery. MEDICATIONS: Simvastatin, aspirin, carvedilol, ibuprofen, losartan, Spironolactone. In hospital medications were reviewed. ALLERGIES: PIROXICAM. SOCIAL HISTORY: Nonsmoker, nonalcoholic. FAMILY HISTORY: No history of renal problems in the family. PHYSICAL EXAMINATION: Vital signs noted. HEENT: Normocephalic, atraumatic, slightly pale conjunctivae, nonicteric sclera. NECK: Supple. No JVD. CHEST: Clear. CVS: S1, S2 normal. ABDOMEN: Soft, nontender. No organomegaly. EXTREMITIES: Trace edema. SKIN: No skin rash. NEUROLOGIC: Alert, awake, oriented x3. LAB DATA AND TESTS: Labs were reviewed. Creatinine 3.6. Blood sugar had been high at 179. Sodium 128. NT ProBNP 1100. UA is full of sediments. Calcium 7.8. Troponins were normal. All other labs were reviewed. The patient is on ceftriaxone. ASSESSMENT: 1) ACUTE KIDNEY INJURY ON CHRONIC KIDNEY DISEASE NOT OTHERWISE SPECIFIED: Etiology of acute kidney injury could have been some degree of hemodynamic instability. She was hypotensive in Dr. Villanueva's office. Other possibilities include urine intention (has had bladder lift surgery plus underlying urine infection which can elaborate cytokines and cause acute kidney injury). The patient also had been on standing medications which include losartan, plus lisinopril and plus ibuprofen. We will discontinue the offending medications, continue fluids and [place] catheter. Also given the presence of urine sediments, we will do baseline glomerulonephritis work up which includes C3, C4, ANCA as well as serum protein electrophoresis. Normal saline will be continued at 100 ml/hour. 2) HYPONATREMIA: Most likely because of low fluid intake. Aggressive fluid intake, continue normal saline. Whereas put her on fluid restriction to avoid free fluid intake. 3) HYPERTENSION: The patient has not been hypertensive at this time, continue fluids, titrate medications. In view of acute kidney injury, hold losartan and Spironolactone. Titrate medications as needed. 4) URINARY TRACT INFECTION (PSEUDOMONAS): Continue ceftriaxone, follow the sensitivities. 5) DIABETES MELLITUS TYPE II: Management as per primary team. All questions answered. Labs reviewed. I will continue to follow closely.
[2021-12-18 12:05] VITALS: BP 176/72; PULSE 78; O2SAT 93
--- NOTE | 2021-12-18 15:11 | PCM.DCORD ---
- Discharge Disposition: Home, Self-Care Condition: Good Prescriptions: New Cefuroxime Axetil [Cefuroxime] 250 mg PO BID #10 tablet Discontinued Ibuprofen 200 mg [Motrin 200 mg] 600 mg PO Q8H PRN PRN Reason: Pain No Action Tizanidine HCl 8 mg PO DAILY Spironolactone 25 mg PO BID Insulin Detemir [Levemir] 30 units SQ BID Gabapentin 300 mg PO BID Carvedilol 12.5 mg [Coreg 12.5 mg] 12.5 mg PO BID Atorvastatin Calcium 80 mg PO DAILY Nitroglycerin 0.4 mg Tablet [Nitrostat 0.4 MG Tablet] 0.4 mg PO Q5MIN PRN MR X 3 PRN PRN Reason: Chest Pain Aspirin 81 gm Chew [Baby Aspirin 81 mg Chew] 81 mg PO DAILY Losartan Potassium 50 mg [Cozaar 50 MG] 100 mg PO DAILY Omeprazole 40 mg PO DAILY Budesonide/Glycopyr/Formoterol [Breztri Aerosphere Inhaler] 2 puffs IH BID Additional Instructions: Do not take Ibuprofen or any NSAID due to impaired kidney function. May take Tylenol for pain or discuss with PCP' Anemia - labs were drawn at discharge. Dr Mcfarland will follow up with you on this. Follow up with: MARYELLEN CALDERON [CONSULTING PHYSICIAN] - EULA MCFARLAND MD [Primary Care Provider] -
--- NOTE | 2021-12-18 15:22 | PCM.DS ---
Discharge Summary Date of Admission: 12/15/21 12:03 Date of Discharge: 12/18/2021 Admitting Physician: EULA MCFARLAND Consults: Consults on Case 12/15/21 08:29 Consult Nephrology ROUTINE Primary Care Provider: EULA MCFARLAND Allergies Allergies piroxicam [From [facility]] Allergy (Verified 12/14/21 18:23) [facility] Summary - Hospital Course Hospital Course: Patient is a 71 yr old female patient of Dr Mcfarland admitted through the ER with dg Pyelonephritis and YVES. She follows with Dr Roach ,Home Care Assistant and Dr DAVID Carolina Educational Advisor. - Vitals & Intake/Output Vital Signs: Vital Signs Temperature 97.3 F 12/18/21 12:00 Pulse Rate 78 12/18/21 12:00 Respiratory Rate 18 12/18/21 12:00 Blood Pressure 176/72 12/18/21 12:00 O2 Sat by Pulse Oximetry 93 L 12/18/21 12:00 Intake & Output: Intake & Output 12/16/21 12/17/21 12/18/21 12/19/21 11:59 11:59 11:59 11:59 Intake Total 2464 3404 2693 380 Output Total 1600 3050 2600 1401 Balance 864 354 93 -1021 - Lab Result Diagrams: 12/17/21 06:56 12/18/21 05:30 Lab Results-Last 24 Hrs: Lab Results-Last 24 Hours 12/17/21 12/17/21 12/18/21 Range/Units 16:03 20:37 05:30 Sodium 139 (137-145) mmol/L Potassium 4.4 (3.5-5.1) mmol/L Chloride 110 H (98-107) mmol/L Carbon Dioxide 20 L (22-30) mmol/L Anion Gap 12.9 (5-15) MEQ/L BUN 44 H (7-17) mg/dL Creatinine 2.88 H (0.52-1.04) mg/dL Estimated GFR 17.0 ML/MIN Glucose 125 H (74-106) mg/dL POC Glucometer 277 H 296 H (74 to 106) mg/dL Calcium 7.9 L (8.4-10.2) mg/dL 12/18/21 12/18/21 Range/Units 07:31 11:40 Sodium (137-145) mmol/L Potassium (3.5-5.1) mmol/L Chloride (98-107) mmol/L Carbon Dioxide (22-30) mmol/L Anion Gap (5-15) MEQ/L BUN (7-17) mg/dL Creatinine (0.52-1.04) mg/dL Estimated GFR ML/MIN Glucose (74-106) mg/dL POC Glucometer 92 230 H (74 to 106) mg/dL Calcium (8.4-10.2) mg/dL Micro Results-Entire Visit: Microbiology 12/15/21 18:39 Urine Culture - Final Urine, Catheterized NO GROWTH 12/14/21 16:17 Urine Culture - Final Urine, Void Escherichia Coli Accuchecks Date 12/18/21 Date 12/18/21 Date 12/17/21 Date 12/17/21 Time 12:04 Time 07:37 Time 20:35 Time 16:15 - Radiology Exams Ordered Rad Exams-Entire Visit: Radiology Procedures Category Date Time Status KIDNEY [US] Routine Exams 12/18/21 08:11 Completed - Procedures and Test Procedures and Tests throughout Hospitalization: Therapy Orders & Screens 12/14/21 20:12 Oxygen Nasal Cannula 2 lpm Comment: Diagnosis: Acute renal injury dehydration metabolic acidosis 12/15/21 11:04 Respiratory Therapy Assessment DAILY Comment: Diagnosis: Acute renal injury dehydration metabolic acidosis 12/16/21 07:00 Respiratory MDI BID Comment: Diagnosis: hypotensive at home - Discharge Disposition: Home, Self-Care Condition: Good Prescriptions: New Cefuroxime Axetil [Cefuroxime] 250 mg PO BID #10 tablet Discontinued Ibuprofen 200 mg [Motrin 200 mg] 600 mg PO Q8H PRN PRN Reason: Pain No Action Tizanidine HCl 8 mg PO DAILY Spironolactone 25 mg PO BID Insulin Detemir [Levemir] 30 units SQ BID Gabapentin 300 mg PO BID Carvedilol 12.5 mg [Coreg 12.5 mg] 12.5 mg PO BID Atorvastatin Calcium 80 mg PO DAILY Nitroglycerin 0.4 mg Tablet [Nitrostat 0.4 MG Tablet] 0.4 mg PO Q5MIN PRN MR X 3 PRN PRN Reason: Chest Pain Aspirin 81 gm Chew [Baby Aspirin 81 mg Chew] 81 mg PO DAILY Losartan Potassium 50 mg [Cozaar 50 MG] 100 mg PO DAILY Omeprazole 40 mg PO DAILY Budesonide/Glycopyr/Formoterol [Breztri Aerosphere Inhaler] 2 puffs IH BID Instructions: Oxygen Therapy, Adult (DC) Additional Instructions: Do not take Ibuprofen or any NSAID due to impaired kidney function. May take Tylenol for pain or discuss with PCP' Anemia - labs were drawn at discharge. Dr Mcfarland will follow up with you on this. Follow up with: JOSLYN CAROLINA [ACTIVE STAFF] - 12/28/21 11:15 am MICHELE WHITE [CONSULTING PHYSICIAN] - 01/02/22 4:10 pm (WILL BE SEEN AT THE [facility]) MARYELLEN CALDERON [CONSULTING PHYSICIAN] - BANG LEON MD [NON-STAFF PHY W/O PRIVILEGES] - 01/01/22 1:30 pm EULA MCFARLAND MD [Primary Care Provider] -
[2021-12-18 15:51] LABS: Hematocrit 28.1 % (35-47); Mean Cell Volume 86.5 fl (78-100); Mean Corpuscular Hemoglobin 27.7 pg (26-32); Mean Platelet Volume 9.6 fl (7.5-11.0); Platelet Count 209 K/mm3 (150-450); Red Blood Count 3.25 M/mm3 (4.1-5.4); Red Cell Distribution Width 14.7 % (11.5-14.0); White Blood Count 8.8 K/mm3 (4.0-10.5)
[2021-12-18 19:45] LABS: Lymphocytes 16 % (24-44); Monocyte 2 % (0.0-12.0); Neutrophils 82 % (36.0-66.0); Total Cells Counted 100
[2021-12-18 19:46] LABS: ANISOCYTOSIS 1+; Platelet Estimate NORMAL (NORMAL); Poikilocytosis 1+
== END 2021-12-18 15:55 | disposition home or self-care (01) | DRG 690 ==
LOC: ED 14:29 → MED SURG 18:05 → OBSVTOIN 12-15 12:03
PROVIDERS: ADMIT General Practice; ATTEND General Practice
DX: N10 Acute pyelonephritis (principal); E87.1 Hypo-osmolality and hyponatremia; N39.0 Urinary tract infection, site not specified; N17.9 Acute kidney failure, unspecified; E87.5 Hyperkalemia; D64.9 Anemia, unspecified; I10 Essential (primary) hypertension; J44.9 Chronic obstructive pulmonary disease, unspecified; E11.9 Type 2 diabetes mellitus without complications; E78.5 Hyperlipidemia, unspecified; R79.89 Other specified abnormal findings of blood chemistry; Z79.899 Other long term (current) drug therapy; Z20.828 Contact with and (suspected) exposure to other viral communicable diseases
CPT/HCPCS: 0241U; 36000; 36415; 76770; 80048; 80053; 81001; 82274; 82570; 82607; 82746; 82947; 83880; 84156; 84300; 84484; 85025; 87077; 87086; 87186; 93005; 93041; 93268; 94640; 94760; 96374; 99285; G0378; J0696; J1650; J1817; A9270-GY

== ENCOUNTER 2023-09-12 15:23 | Emergency (ER) | payer MEDICARE, OTHER ==
[2023-09-12 15:53] VITALS: RESP 18; TEMP 97
[2023-09-12] MEDS ORDERED: Sodium Chloride 0.9% 1000 ML 1,000 ML IV SCH (16:00)
[2023-09-12] MEDS ORDERED: Sodium Chloride 0.9% 1000 ML 1,000 ML ONE (16:10)
[2023-09-12 16:13] LABS: Absolute Neutrophil Ct (ANC) 4.68 x10^3/uL (1.4-6.9); BASOPHIL % 0.5 % (0.0-0.4); Basophil (Absolute #) 0.04 x10^3/uL (0-0.4); Eosinophil % 2.2 % (0.00-5.0); Eosinophil (Absolute #) 0.17 x10^3/uL (0-0.5); Hematocrit 39.3 % (35-47); Hemoglobin 12.6 g/dL (12.0-16.0); IMMATURE GRAN # 0.03 x10^3u/L (0.00-0.03); IMMATURE GRAN % 0.4 % (0.00-0.4); Lymphocyte (Absolute #) 2.18 x10^3/uL (1.0-4.6); Lymphocytes % 28.5 % (24.0-44.0); Mean Cell Volume 88.7 fL (78-100); Mean Corpuscular Hemoglobin 28.4 pg (26-32); Mean Corpuscular Hgb Concent. 32.1 g/dL (32-36); Mean Platelet Volume 10.6 fL (7.5-11.0); Monocyte (Absolute #) 0.55 x10^3/uL (0.0-1.3); Monocytes % 7.2 % (0.0-12.0); Neutrophil % 61.2 % (36.0-66.0); Platelet Count 194 x10^3/uL (150-450); Red Blood Count 4.43 x10^6/uL (4.1-5.4); Red Cell Distribution Width 14.8 % (11.5-14.0); White Blood Count 7.7 x10^3/uL (4.0-10.5)
[2023-09-12 16:20] LABS: Appearance Cloudy (Clear); Bacteria Many /HPF (None Seen); Bilirubin Negative (Negative); Blood Negative (Negative); Epithelial Cells Moderate /HPF (None Seen); Glucose, Urine >=1000 mg/dL (Negative); Hyaline Casts NONE SEEN /LPF (0-2); Ketones Negative (Negative); Leukocyte Esterase Moderate (Negative); Nitrite Negative (Negative); Ph 5.5 (4.6-8.0); Protein,Urine Dip Negative (Negative); RBC 0-2 /HPF (0-5); Specific Gravity 1.015 (1.005-1.030); Urobilinogen 0.2 mg/dL (0.2); WBC >100 /HPF (0-5)
[2023-09-12 16:28] LABS: ALBUMIN 4.1 g/dL (3.5-5.0); ANION GAP 10.8 MEQ/L (5-15); BILIRUBIN,TOTAL 0.6 mg/dL (0.2-1.3); Creatinine 1 2.22 mg/dL (0.52-1.04); EST GLOMERULAR FILTRATION RATE 22.6 ML/MIN; Potassium 3.9 mmol/L (3.5-5.1)
[2023-09-12 16:29] LABS: ADD URINE CULTURE? YES (NO)
--- NOTE | 2023-09-12 16:30 | XRAY ---
Indication: Abdominal pain. Multiple contiguous axial images obtained through the abdomen and pelvis without contrast. Comparison: None Lung bases demonstrates mild scattered subsegmental atelectasis/scarring bilaterally. Peripheral right middle lobe demonstrates 5 mm noncalcified nodule unchanged dating back to CT chest August 04, 2013 and favored to be benign. Heart not enlarged. Moderate-sized hiatal hernia with partial intrathoracic stomach. Noncontrasted stomach and bowel loops appear nonobstructed with normal appendix. Diffuse scattered colonic diverticulosis greatest in sigmoid without diverticulitis. Previous cholecystectomy and hysterectomy. 1.5 cm left adrenal adenoma. No free fluid/air. Remaining liver, pancreas, spleen, adrenal glands, kidneys, ureters, and bladder are unremarkable for noncontrast exam. Minimal aortoiliac calcifications without AAA. Osseous structures intact with osteopenia and minimal/mild degenerative changes throughout thoracolumbar spine. Impression: 1. Chronic findings including benign right middle lobe noncalcified micronodule, hiatal hernia with partial intrathoracic stomach, colonic diverticulosis, left adrenal adenoma, arteriosclerotic disease, and chronic bony findings. 2. Remaining CT abdomen/pelvis without contrast exam is negative.
--- NOTE | 2023-09-12 16:52 | ERPHSYRPT ---
- History of Present Illness Time Seen by Provider: 09/12/23 15:45 Historian: patient Exam Limitations: no limitations Patient Subjective Stated Complaint: RLQ pain that is worse with palpation and radiates around to back. Triage Nursing Assessment: pt to ED from PCP office c/o RLQ pain for about 1 week. denies NVD, fevers. Dr Mcfarland sent pt to ED for eval of appendicitis. rates 7/10 pain that is worse when lying flat and on palpation of abd. Physician History: 73-year-old female presents to our emergency department as a referral from primary care doctor for evaluation of right lower quadrant pain. [place] care pr juan miguel suspects possible appendicitis. Pain started approximately week ago and has gotten progressively worse. No trauma no fever. No nausea vomiting or diaphoresis. Patient has no urinary symptomology. Pain tends to radiate to the back. No associated diarrhea. No rash. Patient denies a history of the same. Patient voices no other complaints or concerns at this time. Patient declined pain medication. Portions of this note were created with voice recognition technology. There may be grammatical, spelling, punctuation or sound alike errors Timing/Duration: week(s) (1 week ago) Activities at Onset: none Quality: aching Abdominal Pain Onset Location: RLQ Pain Radiation: back Severity of Pain-Max: moderate Severity of Pain-Current: mild Modifying Factors: Improves With: palpation Associated Symptoms: denies symptoms Allergies/Adverse Reactions: piroxicam [From [facility]] Allergy (Verified 09/12/23 15:35) Rash Home Medications: Atorvastatin Calcium 80 mg PO DAILY 06/25/18 [History] Carvedilol 12.5 mg [Coreg 12.5 mg] 12.5 mg PO BID 06/25/18 [History] Gabapentin 300 mg PO BID 06/25/18 [History] Insulin Detemir [Levemir] 30 units SQ BID 06/25/18 [History] Spironolactone 25 mg PO BID 06/25/18 [History] Tizanidine HCl 8 mg PO DAILY 06/25/18 [History] Aspirin 81 gm Chew [Baby Aspirin 81 mg Chew] 81 mg PO DAILY 12/14/21 [History] Budesonide/Glycopyr/Formoterol [Breztri Aerosphere Inhaler] 2 puffs IH BID 12/14/21 [History] Nitroglycerin 0.4 mg Tablet [Nitrostat 0.4 MG Tablet] 0.4 mg PO Q5MIN PRN MR X 3 PRN 12/14/21 [History] Omeprazole 40 mg PO DAILY 12/14/21 [History] Hx Tetanus, Diphtheria Vaccination/Date Given: No Hx Influenza Vaccination/Date Given: Yes Hx Pneumococcal Vaccination/Date Given: No Immunizations Up to Date: No Travel Risk - International Travel Have you traveled outside of the country in past 3 weeks: No - Coronavirus Screening Are you exhibiting any of the following symptoms?: No Close contact with a COVID-19 positive Pt in past 14-21 Days: No - Vaccine Status Have you recieved a Covid-19 vaccination: Yes Sales Support Coordinator: Moderna - Vaccination Dates Date of 2cond Vaccination (if applicable): 12/13/20 - Review of Systems Constitutional: No Symptoms, No Fever, No Chills Eyes: No Symptoms Ears, Nose, & Throat: No Symptoms Respiratory: No Symptoms, No Cough, No Dyspnea Cardiac: No Symptoms, No Chest Pain, No Edema, No Syncope Abdominal/Gastrointestinal: No Symptoms, No Abdominal Pain, No Nausea, No Vomiting, No Diarrhea Genitourinary Symptoms: No Symptoms, No Dysuria Musculoskeletal: No Symptoms, No Back Pain, No Neck Pain Skin: No Symptoms, No Rash Neurological: No Symptoms, No Dizziness, No Focal Weakness, No Sensory Changes Psychological: No Symptoms Endocrine: No Symptoms Hematologic/Lymphatic: No Symptoms Immunological/Allergic: No Symptoms All Other Systems: Reviewed and Negative - Past Medical History Pertinent Past Medical History: Yes Neurological History: No Pertinent History ENT History: No Pertinent History Cardiac History: No Pertinent History Respiratory History: COPD Endocrine Medical History: Diabetes Type II Musculoskeletal History: No Pertinent History GI Medical History: Other History: No Pertinent History Psycho-Social History: No Pertinent History Female Reproductive Disorders: No Pertinent History Other Medical History: decreased kidney function - Past Surgical History Past Surgical History: Yes Neuro Surgical History: No Pertinent History Cardiac: No Pertinent History Respiratory: No Pertinent History Gastrointestinal: No Pertinent History Genitourinary: No Pertinent History Musculoskeletal: No Pertinent History Female Surgical History: Hysterectomy Other Surgical History: bladder lift - Social History Smoking Status: Never smoker Exposure to second hand smoke: Yes Drug Use: none Patient Lives Alone: No - Nursing Vital Signs Nursing Vital Signs: Initial Vital Signs Temperature 97.0 F 09/12/23 15:36 Pulse Rate 68 09/12/23 15:36 Respiratory Rate 18 09/12/23 15:36 Blood Pressure 156/74 09/12/23 15:36 O2 Sat by Pulse Oximetry 95 09/12/23 15:36 Pain Scale Pain Intensity 0 - Physical Exam General Appearance: no apparent distress, alert Eye Exam: PERRL/EOMI, eyes nml inspection Ears, Nose, Throat Exam: normal ENT inspection, pharynx normal, moist mucous membranes Neck Exam: normal inspection, non-tender, supple, full range of motion Respiratory Exam: normal breath sounds, lungs clear, airway intact, No respiratory distress Cardiovascular Exam: regular rate/rhythm, normal heart sounds, normal peripheral pulses Gastrointestinal/Abdomen Exam: soft, tenderness, other (Tenderness to palpation at McBurney's point. Overlying soft tissue intact. No signs of trauma), No ma ss Back Exam: normal inspection, normal range of motion, No CVA tenderness, No vertebral tenderness Extremity Exam: normal inspection, normal range of motion, pelvis stable Neurologic Exam: alert, oriented x 3, cooperative, normal mood/affect, nml cerebellar function, sensation nml, No motor deficits Skin Exam: normal color, warm, dry Lymphatic Exam: No adenopathy SpO2 Interpretation: normal SpO2: 95 O2 Delivery: Room Air - Course Nursing assessment & vital signs reviewed: Yes - CT Exams Abdomen/Pelvis CT Interpretation: Tele-radiologist Report (CT abdomen pelvis without contrast shows lung nodule, hiatal hernia with intrathoracic stomach, diverticulosis, left adrenal adenoma, spine arthritis with osteopenia) Ordered Tests: Active Orders 24 hr Category Date Time Status IV Insertion STAT Care 09/12/23 15:53 Active ABDOMEN AND PELVIS W/0 CONTRAS [CT] Stat Exams 09/12/23 15:53 Completed CBC W DIFF Stat Lab 09/12/23 16:05 Completed CMP Stat Lab 09/12/23 16:05 Completed CULTURE,URINE Stat Lab 09/12/23 15:58 Received TROPONIN Q4H Lab 09/12/23 16:05 Completed TROPONIN Q4H Lab 09/12/23 20:00 Ordered TROPONIN Q4H Lab 09/13/23 00:00 Ordered UA W/RFX UR CULTURE Stat Lab 09/12/23 15:58 Completed Medication Summary Generic Name Dose Route Start Last Admin Trade Name Freq PRN Reason Stop Dose Admin Sodium Chloride 1,000 mls @ 100 mls/hr 09/12/23 16:00 09/12/23 16:20 Sodium Chloride 0.9% 1000 Ml IV 10/12/23 15:59 100 mls/hr .Q10H SRI Administration Ceftriaxone Sodium/Dextrose 1 g in 50 mls @ 100 mls/hr 09/12/23 17:26 09/12/23 17:30 Rocephin 1 Gm-D5w 50 Ml Bag IV 09/12/23 17:55 100 ml/hr STAT STA 100 mls/hr Administration Discontinued Medications Generic Name Dose Route Start Last Admin Trade Name Freq PRN Reason Stop Dose Admin Ceftriaxone Sodium/Dextrose Confirm 09/12/23 17:27 Rocephin 1 Gm-D5w 50 Ml Bag Administered 09/12/23 17:28 Dose 1 g in 50 mls @ ud IV .STK-MED ONE Lab/Rad Data: Laboratory Result Diagrams 09/12/23 16:05 09/12/23 16:05 Laboratory Results 09/12/23 09/12/23 09/12/23 Range/Units 16:05 16:05 16:05 WBC 7.7 (4.0-10.5) x10^3/uL RBC 4.43 (4.1-5.4) x10^6/uL Hgb 12.6 (12.0-16.0) g/dL Hct 39.3 (35-47) % MCV 88.7 (78-100) fL MCH 28.4 (26-32) pg MCHC 32.1 (32-36) g/dL RDW 14.8 H (11.5-14.0) % Plt Count 194 (150-450) x10^3/uL MPV 10.6 (7.5-11.0) fL Gran % 61.2 (36.0-66.0) % Immature Gran % (Auto) 0.4 (0.00-0.4) % Nucleat RBC Rel Count 0.0 (0.00-0.1) % Eos # (Auto) 0.17 (0-0.5) x10^3/uL Immature Gran # (Auto) 0.03 (0.00-0.03) x10^3u/L Absolute Lymphs (auto) 2.18 (1.0-4.6) x10^3/uL Absolute Monos (auto) 0.55 (0.0-1.3) x10^3/uL Absolute Nucleated RBC 0.00 (0.00-0.01) x10^3u/L Lymphocytes % 28.5 (24.0-44.0) % Monocytes % 7.2 (0.0-12.0) % Eosinophils % 2.2 (0.00-5.0) % Basophils % 0.5 (0.0-0.4) % Absolute Granulocytes 4.68 (1.4-6.9) x10^3/uL Basophils # 0.04 (0-0.4) x10^3/uL Sodium 139 (137-145) mmol/L Potassium 3.9 (3.5-5.1) mmol/L Chloride 104 (98-107) mmol/L Carbon Dioxide 29 (22-30) mmol/L Anion Gap 10.8 (5-15) MEQ/L BUN 37 H (7-17) mg/dL Creatinine 2.22 H (0.52-1.04) mg/dL Estimated GFR 22.6 ML/MIN Glucose 144 H (74-106) mg/dL Calcium 9.0 (8.4-10.2) mg/dL Total Bilirubin 0.60 (0.2-1.3) mg/dL AST 26 (14-36) U/L ALT 24 (0-35) U/L Alkaline Phosphatase 114 (38-126) U/L Troponin I < 0.012 (0.000-0.034) ng/mL Serum Total Protein 7.0 (6.3-8.2) g/dL Albumin 4.1 (3.5-5.0) g/dL Urine Color (Yellow) Urine Appearance (Clear) Urine pH (4.6-8.0) Ur Specific [place] (1.005-1.030) Urine Protein (Negative) Urine Glucose (UA) (Negative) mg/dL Urine Ketones (Negative) Urine Blood (Negative) Urine Nitrite (Negative) Urine Bilirubin (Negative) Urine Urobilinogen (0.2) mg/dL Ur Leukocyte Esterase (Negative) U Hyaline Cast (Auto) (0-2) /LPF Urine Microscopic RBC (0-5) /HPF Urine Microscopic WBC (0-5) /HPF Ur Epithelial Cells (None Seen) /HPF Urine Bacteria (None Seen) /HPF Urine Culture Reflexed (NO) 09/12/23 Range/Units 15:58 WBC (4.0-10.5) x10^3/uL RBC (4.1-5.4) x10^6/uL Hgb (12.0-16.0) g/dL Hct (35-47) % MCV (78-100) fL MCH (26-32) pg MCHC (32-36) g/dL RDW (11.5-14.0) % Plt Count (150-450) x10^3/uL MPV (7.5-11.0) fL Gran % (36.0-66.0) % Immature Gran % (Auto) (0.00-0.4) % Nucleat RBC Rel Count (0.00-0.1) % Eos # (Auto) (0-0.5) x10^3/uL Immature Gran # (Auto) (0.00-0.03) x10^3u/L Absolute Lymphs (auto) (1.0-4.6) x10^3/uL Absolute Monos (auto) (0.0-1.3) x10^3/uL Absolute Nucleated RBC (0.00-0.01) x10^3u/L Lymphocytes % (24.0-44.0) % Monocytes % (0.0-12.0) % Eosinophils % (0.00-5.0) % Basophils % (0.0-0.4) % Absolute Granulocytes (1.4-6.9) x10^3/uL Basophils # (0-0.4) x10^3/uL Sodium (137-145) mmol/L Potassium (3.5-5.1) mmol/L Chloride (98-107) mmol/L Carbon Dioxide (22-30) mmol/L Anion Gap (5-15) MEQ/L BUN (7-17) mg/dL Creatinine (0.52-1.04) mg/dL Estimated GFR ML/MIN Glucose (74-106) mg/dL Calcium (8.4-10.2) mg/dL Total Bilirubin (0.2-1.3) mg/dL AST (14-36) U/L ALT (0-35) U/L Alkaline Phosphatase (38-126) U/L Troponin I (0.000-0.034) ng/mL Serum Total Protein (6.3-8.2) g/dL Albumin (3.5-5.0) g/dL Urine Color Yellow (Yellow) Urine Appearance Cloudy A (Clear) Urine pH 5.5 (4.6-8.0) Ur Specific [place] 1.015 (1.005-1.030) Urine Protein Negative (Negative) Urine Glucose (UA) >=1000 A (Negative) mg/dL Urine Ketones Negative (Negative) Urine Blood Negative (Negative) Urine Nitrite Negative (Negative) Urine Bilirubin Negative (Negative) Urine Urobilinogen 0.2 (0.2) mg/dL Ur Leukocyte Esterase Moderate A (Negative) U Hyaline Cast (Auto) NONE SEEN (0-2) /LPF Urine Microscopic RBC 0-2 (0-5) /HPF Urine Microscopic WBC >100 A (0-5) /HPF Ur Epithelial Cells Moderate A (None Seen) /HPF Urine Bacteria Many A (None Seen) /HPF Urine Culture Reflexed YES (NO) - Progress Progress: improved Progress Note: 73-year-old female presents emergency department for evaluation of abdominal pain. Patient was referred to us by her primary care doctor to assess for p ossible appendicitis. Appendix is not unremarkable. No appendicitis observed on CAT scan. CAT scan shows chronic findings otherwise. CBC is unremarkable. CMP shows abnormal creatinine. However patient admits to history of chronic renal sufficiency. Troponin negative. Urinalysis reveals a urinary tract infection. Patient received a dose of Rocephin in our ED. IV fluids infused. Patient reassessed patient is resting comfortably. Patient declined pain medication. She voices no other complaints or concerns at this time. Portions of this note were created with voice recognition technology. There may be grammatical, spelling, punctuation or sound alike errors Complexity of problems addressed is moderate acute complicated Complexity of data reviewed is extensive. Test ordered test reviewed. Results analyzed and correlated clinically with history and physical examination. Workup discussed with hospitalist who referred patient to our ED. Risk of complication and or risk of morbidity/mortality of patient management is moderate. Patient received a dose of Rocephin in our ED. A prescription for Keflex forwarded to patient's pharmacy. Patient agrees to follow-up with her primary care doctor within 48 hours for evaluation. Vital stable. Time spent to discharge patient approximately 15 minutes. Plan of care established for shared decision making. No social d eterminants of health present to impede follow-up. Portions of this note were created with voice recognition technology. There may be grammatical, spelling, punctuation or sound alike errors 09/12/23 17:55 Discussed with DrLee: Kari (Case discussed with Dr. Santos at approximately 1545) Counseled pt/family regarding: lab results, diagnosis, need for follow-up, rad results - Departure Departure Disposition: Home Clinical Impression: Glucosuria, Urinary tract infection, Lung nodule, Hiatal hernia, Diverticulosis, Adenoma of left adrenal gland, Arthritis of spine, Osteopenia Condition: Stable Critical Care Time: No Referrals: EULA MCFARLAND MD [Primary Care Provider] - Follow up/PCP as directed Prescriptions: Cephalexin Mh 500 mg [Keflex 500 mg] 500 mg PO TID #21 cap
[2023-09-12] MEDS ORDERED: ROCEPHIN 1 Gm-D5w 50 ml Bag** 1 G/50 ML IVPB IV STA (17:26)
[2023-09-12] MEDS ORDERED: ROCEPHIN 1 Gm-D5w 50 ml Bag** 1 G/50 ML IVPB IV ONE (17:27)
[2023-09-12 18:07] VITALS: BP 102/81; PULSE 78; O2SAT 93
== END 2023-09-12 18:09 | disposition home or self-care (01) ==
LOC: ED 15:23
DX: N39.0 Urinary tract infection, site not specified (principal); R81 Glycosuria; R91.1 Solitary pulmonary nodule; K44.9 Diaphragmatic hernia without obstruction or gangrene; K57.90 Diverticulosis of intestine, part unspecified, without perforation or abscess without bleeding; D35.02 Benign neoplasm of left adrenal gland; M47.9 Spondylosis, unspecified; M85.80 Other specified disorders of bone density and structure, unspecified site; R10.31 Right lower quadrant pain; E11.22 Type 2 diabetes mellitus with diabetic chronic kidney disease; N18.9 Chronic kidney disease, unspecified; Z79.4 Long term (current) use of insulin; Z79.899 Other long term (current) drug therapy
CPT/HCPCS: 36000; 36415; 74176; 80053; 81001; 84484; 85025; 87077; 87086; 87186; 96365; 99284; J0696

== ENCOUNTER 2024-12-07 21:28 | Emergency (ER) | payer MEDICARE ==
[2024-12-07 22:10] VITALS: PULSE 84; TEMP 97.3; O2SAT 94
--- NOTE | 2024-12-07 22:33 | ERPHSYRPT ---
- History of Present Illness Source: patient Exam Limitations: no limitations Patient Subjective Stated Complaint: Pt. states, "I had laser eye surgery 3 weeks ago. I saw my eye doctor today because I have a gas bubble in my left eye. When I got home, I started feeling dizzy and nauseas then I started vomiting." Triage Nursing Assessment: Pt. arrives in w/c, transferred to bed with assist x 1, skin p/w/d, resp even unlabored. able to move all four ext. Physician History: Patient has classic positional vertigo she says whenever she moves her head [id number] she gets vertigo symptoms. She got nauseated once and threw up. The Symptoms resolving if she holds her head still. She does not have any ataxia. Movement of the head makes it worse resting makes it better. She says she also has some ear congestion on the right. She says that she can feelPressure and there. Timing/Duration: today Severity: moderate Character of Deficits: none Deficits: no difficulties Allergies/Adverse Reactions: piroxicam [From [facility]] Allergy (Verified 09/12/23 15:35) Rash Home Medications: Atorvastatin Calcium 80 mg PO DAILY 06/25/18 [History] Carvedilol 12.5 mg [Coreg 12.5 mg] 12.5 mg PO BID 06/25/18 [History] Gabapentin 300 mg PO BID 06/25/18 [History] Insulin Detemir [Levemir] 30 units SQ BID 06/25/18 [History] Spironolactone 25 mg PO BID 06/25/18 [History] Tizanidine HCl 8 mg PO DAILY 06/25/18 [History] Aspirin 81 gm Chew [Baby Aspirin 81 mg Chew] 81 mg PO DAILY 12/14/21 [History] Budesonide/Glycopyr/Formoterol [Breztri Aerosphere Inhaler] 2 puffs IH BID 12/14/21 [History] Nitroglycerin 0.4 mg Tablet [Nitrostat 0.4 MG Tablet] 0.4 mg PO Q5MIN PRN MR X 3 PRN 12/14/21 [History] Omeprazole 40 mg PO DAILY 12/14/21 [History] Hx Tetanus, Diphtheria Vaccination/Date Given: No Hx Influenza Vaccination/Date Given: Yes Hx Pneumococcal Vaccination/Date Given: Yes Immunizations Up to Date: Yes Travel Risk - International Travel Have you traveled outside of the country in past 3 weeks: No - Emerging Infectious Disease Are you exhibiting symptoms associated with any current EIDs: No - Review of Systems Constitutional: No Symptoms Eyes: No Symptoms Respiratory: No Symptoms Cardiac: No Symptoms Neurological: Vertigo Psychological: No Symptoms All Other Systems: Reviewed and Negative - Past Medical History Pertinent Past Medical History: Yes Neurological History: No Pertinent History ENT History: No Pertinent History Cardiac History: No Pertinent History Respiratory History: COPD Endocrine Medical History: Diabetes Type II Musculoskeletal History: No Pertinent History GI Medical History: Other History: No Pertinent History Psycho-Social History: No Pertinent History Female Reproductive Disorders: No Pertinent History Other Medical History: decreased kidney function - Past Surgical History Past Surgical History: Yes Neuro Surgical History: No Pertinent History Cardiac: No Pertinent History Respiratory: No Pertinent History Gastrointestinal: No Pertinent History Genitourinary: No Pertinent History Musculoskeletal: No Pertinent History Female Surgical History: Hysterectomy Other Surgical History: bladder lift - Social History Smoking Status: Never smoker Exposure to second hand smoke: No Drug Use: none - Social Determinants of Health Will the patient participate in the screening: Declined to provide - Nursing Vital Signs Nursing Vital Signs: Initial Vital Signs Temperature 97.3 F 12/07/24 22:03 Pulse Rate 84 12/07/24 22:03 Respiratory Rate 18 12/07/24 22:03 Blood Pressure 156/83 12/07/24 22:03 O2 Sat by Pulse Oximetry 94 L 12/07/24 22:03 Pain Scale Pain Intensity 0 - [place] Coma Scale Best Eye Response ([place]): (4) open spontaneously Best Verbal Response ([place]): (5) oriented Best Motor Response ([place]): (6) obeys commands [place] Total: 15 - Physical Exam General Appearance: no apparent distress Eye Exam: bilateral eye: normal inspection, PERRL, EOMI Ears, Nose, Throat Exam: normal ENT inspection, TMs normal, pharynx normal Respiratory: normal breath sounds cause analyst Exam: normal hearing, normal speech, PERRL Coordination/Gait: normal finger to nose, normal gait, normal cerebellar function Motor/Sensory: no motor deficit, no sensory deficit, no pronator drift Skin Exam: normal color, warm, dry SpO2: 94 - Course Nursing assessment & vital signs reviewed: Yes - Progress Progress Note: Patient was stable throughout stay. On the differential was benign positional vertigo,Posterior CVA.. The symptoms only occur with position changes I think she has benign positional vertigo. I will start her on Antivert. She is to return if symptoms worsen. 12/07/24 22:32 - Departure Departure Disposition: Home Clinical Impression: Benign positional vertigo Condition: Stable Critical Care Time: No Referrals: EULA MCFARLAND MD [Primary Care Provider] - Follow up/PCP as directed Instructions: Vertigo (a type of dizziness), Exercises (maneuvers) for benign paroxysmal positional vertigo
[2024-12-07] MEDS ORDERED: ANTIVERT 25 MG ONE (23:03)
[2024-12-07 23:07] VITALS: BP 152/87; RESP 19
[2024-12-07] MEDS: ANTIVERT 25 MG PO ONE (23:07)
== END 2024-12-07 23:30 | disposition home or self-care (01) ==
LOC: ED 21:28
DX: H81.10 Benign paroxysmal vertigo, unspecified ear (principal); E11.9 Type 2 diabetes mellitus without complications; Z79.4 Long term (current) use of insulin; Z79.899 Other long term (current) drug therapy
CPT/HCPCS: 99281; 99283; A9270-GY